=== PATIENT | male | born 1965 ===

== ENCOUNTER → 2017-11-03 | Outpatient (CLI) | payer MEDICAID | END | disposition home or self-care (01) | LOC: RAD 16:07 | PROVIDERS: ATTEND Thoracic Surgery (Cardiothoracic Vascular Surgery) | DX: M79.605 Pain in left leg (principal); R60.0 Localized edema ==

== ENCOUNTER 2017-11-10 09:00 | Inpatient (IN) | payer MEDICAID, OTHER ==
[~2017-11-10] VITALS: Ht 182.9 cm; Wt 133.4 kg
[2017-11-10 09:57] LABS: BASOPHILS # (AUTO) 0.08 x10^3/uL (0-0.1); BASOPHILS % (AUTO) 1 % (0-1); EOSINOPHILS # (AUTO) 0.58 x10^3/uL (0-0.4); EOSINOPHILS % (AUTO) 6 % (1-7); LYMPHOCYTES % (AUTO) 20 % (22-44); MD NO; MEAN CORPUSCULAR HEMOGLOBIN 26.4 pg (27.5-34.5); MEAN CORPUSCULAR HGB CONC 32.8 g/dL (33.2-36.2); MEAN CORPUSCULAR VOLUME 80.3 fL (81-97); MEAN PLATELET VOLUME 8.3 fL (7.4-10.4); MONOCYTES # (AUTO) 0.79 x10^3/uL (0.2-0.8); MONOCYTES % (AUTO) 9 % (2-9); NEUTROPHILS # (AUTO) 5.92 x10^3/uL (1.8-6.8); NEUTROPHILS % (AUTO) 65 % (42-75); PLATELET COUNT 383 x10^3/uL (130-400); RED BLOOD COUNT 3.86 x10^6/uL (4.38-5.82); RED CELL DISTRIBUTION WIDTH 17.4 % (9.4-14.8)
[2017-11-10] MEDS ORDERED: PLEASE ENTER HEIGHT AND WEIGHT MC SCH (10:00)
[2017-11-10] MEDS ORDERED: PLEASE ENTER ALLERGIES MC SCH (10:00)
[2017-11-10 10:08] LABS: INTERNATIONAL NORMALIZED RATIO 1.01 (0.93-1.1); PROTHROMBIN TIME 10.4 Seconds (9.6-11.5)
[2017-11-10 10:09] LABS: ALANINE AMINOTRANSFERASE 25 U/L (12-78); ANION GAP 7 mmol/L (5-15); CALCIUM 8.3 mg/dL (8.5-10.1); CHLORIDE 111 mmol/L (98-107); CREATININE 2.14 mg/dL (0.7-1.3)
[2017-11-10 10:11] LABS: ALKALINE PHOSPHATASE 180 U/L (45-117); BILIRUBIN,TOTAL 0.4 mg/dL (0.2-1.0); TOTAL PROTEIN 7.6 g/dL (6.4-8.2)
[2017-11-10] MEDS ORDERED: CARV25TA12 PO (10:31)
[2017-11-10] MEDS ORDERED: INSU100V8 SQ ×2 (10:31)
[2017-11-10] MEDS ORDERED: ASPI-621 PO (10:31)
[2017-11-10] MEDS ORDERED: ATOR-2 PO (10:31)
[2017-11-10] MEDS ORDERED: FURO40TA6 PO (10:31)
[2017-11-10] MEDS ORDERED: INSULIN LISPRO 100 UNITS/ML, PEN SQ-INSULIN SCH (11:00)
[2017-11-10 11:04] LABS: HEMOGLOBIN A1C 10.6 % (4.2-6.3)
[2017-11-10] MEDS ORDERED: HEPARIN 5,000 UNITS/ML, 1ML IV ONE (11:30)
[2017-11-10] MEDS: HEPARIN 25,000 UNITS/500ML PMX 500 ML IV PRN (12:03)
[2017-11-10 12:30] VITALS: BP 126/74
[2017-11-10] MEDS: INSULIN LISPRO 100 UNITS/ML, PEN SQ-INSULIN SCH ×2 (16:46→20:33)
[2017-11-10] MEDS: HEPARIN 5,000 UNITS/ML, 1ML IV PRN (18:18)
[2017-11-10 20:00] VITALS: BP 122/87
[2017-11-10] MEDS: ATORVASTATIN 80 MG TABLET PO SCH (20:28)
[2017-11-10] MEDS: SODIUM CHLORIDE FLUSH 10ML SYR IVF SCH (20:28)
[2017-11-10] MEDS: INSULIN GLARGINE 100 UNITS/ML, PEN SQ-INSULIN SCH (20:33)
[2017-11-10 21:16] LABS: MICROSCOPIC AUTO
[2017-11-11 00:54] VITALS: BP 111/68
[2017-11-11 01:12] VITALS: BP 116/67
[2017-11-11] MEDS: HEPARIN 5,000 UNITS/ML, 1ML IV PRN ×2 (01:36→14:04)
[2017-11-11] MEDS: ASPIRIN 81 MG TABLET EC PO SCH (05:11)
[2017-11-11] MEDS: CARVEDILOL 25 MG TABLET PO SCH (05:11)
[2017-11-11] MEDS: HEPARIN 25,000 UNITS/500ML PMX 500 ML IV PRN ×2 (07:17→23:05)
[2017-11-11] MEDS: INSULIN LISPRO 100 UNITS/ML, PEN SQ-INSULIN SCH ×4 (07:19→21:51)
[2017-11-11 07:20] VITALS: BP 103/61
[2017-11-11] MEDS ORDERED: FUROSEMIDE 40 MG TABLET PO SCH (09:00)
[2017-11-11] MEDS: SODIUM CHLORIDE FLUSH 10ML SYR IVF SCH ×2 (09:16→21:45)
[2017-11-11] MEDS: INSULIN GLARGINE 100 UNITS/ML, PEN SQ-INSULIN SCH ×2 (09:17→21:50)
[2017-11-11 14:06] VITALS: BP 127/73
[2017-11-11 18:43] VITALS: BP 136/82
[2017-11-11] MEDS ORDERED: CHLORHEXIDINE 15 ML BOTTLE MM SCH (21:00)
[2017-11-11] MEDS: ATORVASTATIN 80 MG TABLET PO SCH (21:45)
[2017-11-11] MEDS: MUPIROCIN OINT 2%, 22GM TP SCH (23:06)
[2017-11-12] MEDS ORDERED: ALBUMIN HUMAN 5% 500 ML IV PRN (00:30)
[2017-11-12 01:12] VITALS: BP 105/69
[2017-11-12] MEDS ORDERED: METOPROLOL TARTRATE 25 MG TABLET PO ONE (05:00)
[2017-11-12 05:33] VITALS: BP_SYST 156; BP_SYST 175; BP_DIAS 83; BP_DIAS 86
[2017-11-12] MEDS: ASPIRIN 81 MG TABLET EC PO SCH (05:38)
[2017-11-12] MEDS: MUPIROCIN OINT 2%, 22GM TP SCH ×2 (06:10→20:33)
[2017-11-12] MEDS: CARVEDILOL 25 MG TABLET PO SCH (06:10)
[2017-11-12 06:35] VITALS: BP 133/77
[2017-11-12] MEDS ORDERED: MIDAZOLAM 10MG/2 ML ONE (07:08)
[2017-11-12] MEDS ORDERED: FENTANYL PF 250 MCG/5ML ONE ×5 (07:11→11:48)
[2017-11-12] MEDS ORDERED: HEPARIN 1,000 UNITS/ML, 10ML ONE (07:12)
[2017-11-12] MEDS ORDERED: PAPAVERINE 30 MG/ML, 2ML ONE (07:12)
[2017-11-12] MEDS ORDERED: EPINEPHRINE 1 MG/ML, 1ML ONE (07:13)
[2017-11-12] MEDS ORDERED: ROCURONIUM 10 MG/ML,10ML ONE (07:13)
[2017-11-12] MEDS ORDERED: PROPOFOL 10 MG/ML, 20ML ONE (07:13)
[2017-11-12] MEDS ORDERED: PHENYLEPHRINE 10 MG in SODIUM CHLORIDE 0.9% 249 ML IV PRN ×2 (07:30→12:10)
[2017-11-12] MEDS ORDERED: VANCOMYCIN 1,900 MG in SODIUM CHLORIDE 0.9% 250 ML IV PRN (07:30)
[2017-11-12] MEDS ORDERED: POTASSIUM CHLORIDE 80 MEQ, SODIUM BICARBONATE 8.4% 10 MEQ, MAGNESIUM SULFATE 0.5 GM, LI... IV PRN (07:30)
[2017-11-12] MEDS ORDERED: MANNITOL PMX 20% 500 ML IVPB PRN (07:30)
[2017-11-12] MEDS ORDERED: DEXMEDETOMIDINE 200 MCG in SODIUM CHLORIDE 0.9% 48 ML IV SCH (07:30)
[2017-11-12] MEDS ORDERED: EPINEPHRINE 2 MG in SODIUM CHLORIDE 0.9% 248 ML IV SCH (07:30)
[2017-11-12] MEDS ORDERED: REGULAR INSULIN 62.5 UNITS in SODIUM CHLORIDE 0.9% 249.375 ML IV PRN ×2 (07:30→12:10)
[2017-11-12] MEDS ORDERED: CEFUROXIME 1.5 GM in SODIUM CHLORIDE 0.9% 50 ML IVPB PRN (07:30)
[2017-11-12] MEDS: DOCUSATE 100 MG CAPSULE PO SCH ×2 (09:00→20:00)
[2017-11-12] MEDS: SODIUM CHLORIDE FLUSH 10ML SYR IVF SCH ×3 (09:00→20:00)
[2017-11-12] MEDS ORDERED: PAPAVERINE 30 MG/ML, 2ML IVPush ONE (09:17)
[2017-11-12] MEDS ORDERED: HEPARIN 1,000 UNITS/ML, 10ML IV ONE (09:18)
[2017-11-12] MEDS ORDERED: KETAMINE 10 MG/ML, 20ML ONE (09:46)
[2017-11-12] MEDS ORDERED: PROTAMINE SULFATE 10 MG/ML, 25ML ONE ×2 (11:13)
[2017-11-12] MEDS ORDERED: CALCIUM CHLORIDE 10%, 10ML SYR ONE (11:25)
[2017-11-12] MEDS ORDERED: DEXMEDETOMIDINE 200 MCG in SODIUM CHLORIDE 0.9% 48 ML IV PRN (12:10)
[2017-11-12] MEDS ORDERED: NITROGLYCERIN/D5W PMX 240 ML IV PRN (12:10)
[2017-11-12] MEDS ORDERED: DOBUTAMINE 250 MG in SODIUM CHLORIDE 0.9% 230 ML IV PRN (12:10)
[2017-11-12] MEDS ORDERED: SODIUM BICARB 8.4%, 50ML SYRINGE ONE (12:27)
[2017-11-12] MEDS ORDERED: LIDOCAINE 2% 100MG/5ML SYRINGE ONE (12:27)
[2017-11-12] MEDS ORDERED: HEPARIN 1,000 UNITS/ML, 30ML ONE (12:27)
[2017-11-12] MEDS ORDERED: ALBUMIN HUMAN 25% 50 ML ONE (12:27)
[2017-11-12] MEDS ORDERED: MIDAZOLAM 1 MG/ML, 5ML IVPush PRN (12:30)
[2017-11-12] MEDS ORDERED: GLUCAGON 1 MG IM PRN (12:30)
[2017-11-12] MEDS: KSCALE TO 4.5 IV SCH ×2 (12:30→18:30)
[2017-11-12] MEDS ORDERED: MAGNESIUM SULFATE 1 GM in SODIUM CHLORIDE 0.9% 50 ML IVPB SCH (12:30)
[2017-11-12] MEDS ORDERED: INSULIN REGULAR 100 UNITS/ML, 3ML VIAL IVPush PRN (12:30)
[2017-11-12] MEDS ORDERED: ACETAMINOPHEN 650 MG SUPP PR PRN (12:30)
[2017-11-12] MEDS ORDERED: LACTATED RINGERS 1,000 ML IV PRN (12:30)
[2017-11-12] MEDS ORDERED: SODIUM BICARB 8.4%, 50ML SYRINGE IV PRN (12:30)
[2017-11-12] MEDS ORDERED: DEXTROSE 4 GM TAB.CHEW PO PRN (12:30)
[2017-11-12] MEDS: CHLORHEXIDINE 15 ML BOTTLE MM SCH (12:30)
[2017-11-12] MEDS ORDERED: BISACODYL 10 MG SUPP PR PRN (12:30)
[2017-11-12] MEDS ORDERED: DEXTROSE 50%, 50ML SYRINGE IVPush PRN (12:30)
[2017-11-12] MEDS ORDERED: EPINEPHRINE 2 MG in SODIUM CHLORIDE 0.9% 248 ML IV PRN (12:30)
[2017-11-12 12:35] VITALS: BP 121/63
[2017-11-12 12:50] VITALS: BP 104/58
[2017-11-12 12:51] LABS: GLUCOSE BY BLOOD GAS ANALYZER 146 mg/dL (70-110); HEMOGLOBIN BY BLOOD GAS ANALYZ 9.1 g/dL (14.0-18.0); POTASSIUM BY BLOOD GAS ANALYZR 5.8 mmol/L (3.6-5.5)
[2017-11-12 13:02] LABS: INTERNATIONAL NORMALIZED RATIO 1.15 (0.93-1.1); PROTHROMBIN TIME 11.8 Seconds (9.6-11.5)
[2017-11-12 13:30] VITALS: BP 128/73
[2017-11-12] MEDS: INSULIN LISPRO 100 UNITS/ML, PEN SQ-INSULIN SCH ×2 (16:00→20:25)
[2017-11-12] MEDS: DEXMEDETOMIDINE 1,000 MCG in SODIUM CHLORIDE 0.9% 240 ML IV PRN (16:45)
[2017-11-12] MEDS: VANCOMYCIN 1,900 MG in SODIUM CHLORIDE 0.9% 250 ML IVPB SCH (19:13)
[2017-11-12] MEDS: morphine SULFATE 10 MG/ML, 1ML IVPush PRN ×3 (19:59→23:14)
[2017-11-12] MEDS: ATORVASTATIN 80 MG TABLET PO SCH (20:00)
[2017-11-12] MEDS: MUPIROCIN OINT 2%, 22GM NAS SCH (20:33)
[2017-11-13] MEDS: KSCALE TO 4.5 IV SCH ×2 (00:30→06:30)
[2017-11-13] MEDS: DEXMEDETOMIDINE 1,000 MCG in SODIUM CHLORIDE 0.9% 240 ML IV PRN (01:47)
[2017-11-13] MEDS: morphine SULFATE 10 MG/ML, 1ML IVPush PRN ×2 (01:50→04:45)
[2017-11-13 04:15] VITALS: BP 121/67
[2017-11-13] MEDS: ASPIRIN 81 MG TABLET EC PO SCH ×2 (04:17→14:07)
[2017-11-13 05:26] LABS: CHLORIDE 114 mmol/L (98-107)
[2017-11-13 05:36] LABS: BASOPHILS # (AUTO) 0.07 x10^3/uL (0-0.1); BASOPHILS % (AUTO) 1 % (0-1); EOSINOPHILS # (AUTO) 0.16 x10^3/uL (0-0.4); EOSINOPHILS % (AUTO) 2 % (1-7); LYMPHOCYTES # (AUTO) 0.79 x10^3/uL (1-3.4); LYMPHOCYTES % (AUTO) 8 % (22-44); MD NO; MEAN CORPUSCULAR HEMOGLOBIN 26.8 pg (27.5-34.5); MEAN CORPUSCULAR HGB CONC 32.7 g/dL (33.2-36.2); MEAN CORPUSCULAR VOLUME 81.9 fL (81-97); MEAN PLATELET VOLUME 8.9 fL (7.4-10.4); MONOCYTES # (AUTO) 0.96 x10^3/uL (0.2-0.8); MONOCYTES % (AUTO) 9 % (2-9); NEUTROPHILS # (AUTO) 8.27 x10^3/uL (1.8-6.8); NEUTROPHILS % (AUTO) 81 % (42-75); PLATELET COUNT 268 x10^3/uL (130-400); RED CELL DISTRIBUTION WIDTH 17.6 % (9.4-14.8)
[2017-11-13 06:39] LABS: ANION GAP 11 mmol/L (5-15)
[2017-11-13 06:40] LABS: ALBUMIN 2.7 g/dL (3.4-5.0); CALCIUM 8.2 mg/dL (8.5-10.1); CREATININE 1.82 mg/dL (0.7-1.3)
[2017-11-13] MEDS: INSULIN LISPRO 100 UNITS/ML, PEN SQ-INSULIN SCH ×4 (06:40→20:41)
[2017-11-13] MEDS: SODIUM CHLORIDE FLUSH 10ML SYR IVF SCH ×3 (09:00→20:37)
[2017-11-13] MEDS: MUPIROCIN OINT 2%, 22GM NAS SCH ×2 (09:00→20:38)
[2017-11-13] MEDS: CHLORHEXIDINE 15 ML BOTTLE MM SCH ×2 (10:00→20:37)
[2017-11-13] MEDS: HYDROcodone/APAP 5/325 TABLET PO PRN ×2 (10:38→18:23)
[2017-11-13] MEDS: DOCUSATE 100 MG CAPSULE PO SCH ×2 (14:07→20:37)
[2017-11-13] MEDS: OXYcodone IR 5MG TABLET PO PRN ×3 (14:07→22:45)
[2017-11-13] MEDS: CARVEDILOL 3.125 MG TABLET PO SCH ×2 (14:08→18:24)
[2017-11-13] MEDS: MUPIROCIN OINT 2%, 22GM TP SCH ×2 (14:08→20:37)
[2017-11-13] MEDS: VANCOMYCIN 1,900 MG in SODIUM CHLORIDE 0.9% 250 ML IVPB SCH (18:49)
[2017-11-13] MEDS: ONDANSETRON 2MG/ML, 2ML IVPush PRN (19:51)
[2017-11-13] MEDS: ATORVASTATIN 80 MG TABLET PO SCH (20:37)
[2017-11-14] MEDS: INSULIN LISPRO 100 UNITS/ML, PEN SQ-INSULIN SCH ×5 (02:34→20:15)
[2017-11-14 03:00] VITALS: BP 121/74
[2017-11-14] MEDS: HYDROcodone/APAP 5/325 TABLET PO PRN ×3 (04:06→18:29)
[2017-11-14 04:31] LABS: MEAN CORPUSCULAR HEMOGLOBIN 26.7 pg (27.5-34.5); MEAN CORPUSCULAR HGB CONC 32.8 g/dL (33.2-36.2); MEAN CORPUSCULAR VOLUME 81.5 fL (81-97); MEAN PLATELET VOLUME 8.5 fL (7.4-10.4); PLATELET COUNT 250 x10^3/uL (130-400); RED BLOOD COUNT 2.91 x10^6/uL (4.38-5.82); RED CELL DISTRIBUTION WIDTH 17.9 % (9.4-14.8)
[2017-11-14 04:36] LABS: ANION GAP 6 mmol/L (5-15); CALCIUM 7.8 mg/dL (8.5-10.1); CHLORIDE 110 mmol/L (98-107); CREATININE 2.14 mg/dL (0.7-1.3)
[2017-11-14 05:47] LABS: BASOPHILS # (AUTO) 0.05 x10^3/uL (0-0.1); BASOPHILS % (AUTO) 0 % (0-1); EOSINOPHILS # (AUTO) 0.02 x10^3/uL (0-0.4); EOSINOPHILS % (AUTO) 0 % (1-7); LYMPHOCYTES # (AUTO) 0.91 x10^3/uL (1-3.4); LYMPHOCYTES % (AUTO) 6 % (22-44); MD SCAN; MONOCYTES % (AUTO) 12 % (2-9); NEUTROPHILS # (AUTO) 13.45 x10^3/uL (1.8-6.8); NEUTROPHILS % (AUTO) 82 % (42-75)
[2017-11-14] MEDS: CARVEDILOL 3.125 MG TABLET PO SCH ×2 (06:07→18:28)
[2017-11-14] MEDS: ASPIRIN 81 MG TABLET EC PO SCH ×2 (06:08→09:05)
[2017-11-14] MEDS: ONDANSETRON 2MG/ML, 2ML IVPush PRN ×2 (07:31→18:28)
[2017-11-14] MEDS: DOCUSATE 100 MG CAPSULE PO SCH ×2 (09:03→20:23)
[2017-11-14] MEDS: OXYcodone IR 5MG TABLET PO PRN ×3 (09:03→20:23)
[2017-11-14] MEDS: FUROSEMIDE 20 MG/2 ML IV SCH ×2 (09:04→20:24)
[2017-11-14] MEDS: SODIUM CHLORIDE FLUSH 10ML SYR IVF SCH ×2 (09:04→20:23)
[2017-11-14] MEDS: INSULIN GLARGINE 100 UNITS/ML, PEN SQ-INSULIN SCH (09:04)
[2017-11-14] MEDS: ENOXAPARIN 40 MG/0.4 ML SQ SCH (09:05)
[2017-11-14] MEDS: MUPIROCIN OINT 2%, 22GM NAS SCH ×2 (09:10→20:24)
[2017-11-14] MEDS: CHLORHEXIDINE 15 ML BOTTLE MM SCH ×2 (10:00→20:24)
[2017-11-14] MEDS ORDERED: PROMETHAZINE 25 MG/ML, 1ML ONE (10:12)
[2017-11-14] MEDS ORDERED: PROMETHAZINE 25 MG/ML, 1ML IM PRN (10:30)
[2017-11-14 12:24] VITALS: BP 130/75
[2017-11-14 12:39] VITALS: BP 131/75
[2017-11-14 14:32] VITALS: BP 134/82
[2017-11-14] MEDS: ATORVASTATIN 80 MG TABLET PO SCH (20:23)
[2017-11-15 02:30] VITALS: BP 121/63
[2017-11-15] MEDS: INSULIN LISPRO 100 UNITS/ML, PEN SQ-INSULIN SCH ×5 (03:00→19:59)
[2017-11-15 04:00] VITALS: BP 134/68
[2017-11-15] MEDS: HYDROcodone/APAP 5/325 TABLET PO PRN ×3 (04:22→17:20)
[2017-11-15 04:49] LABS: ANION GAP 8 mmol/L (5-15); CALCIUM 8.1 mg/dL (8.5-10.1); CHLORIDE 108 mmol/L (98-107)
[2017-11-15 04:55] LABS: % IRON SATURATION 7 % (20-55); CREATININE 2.59 mg/dL (0.7-1.3); IRON LEVEL 14 mcg/dL (65-175); TOTAL IRON BINDING CAPACITY 209 mcg/dL (250-450)
[2017-11-15] MEDS: CARVEDILOL 3.125 MG TABLET PO SCH ×2 (05:43→17:19)
[2017-11-15 06:12] LABS: MEAN CORPUSCULAR HEMOGLOBIN 27.3 pg (27.5-34.5); MEAN CORPUSCULAR VOLUME 82.8 fL (81-97); MEAN PLATELET VOLUME 8.8 fL (7.4-10.4); PLATELET COUNT 208 x10^3/uL (130-400); RED BLOOD COUNT 2.71 x10^6/uL (4.38-5.82); RED CELL DISTRIBUTION WIDTH 17.5 % (9.4-14.8)
[2017-11-15 08:55] LABS: MD YES
[2017-11-15] MEDS: MUPIROCIN OINT 2%, 22GM NAS SCH ×2 (09:20→19:57)
[2017-11-15] MEDS: CHLORHEXIDINE 15 ML BOTTLE MM SCH ×2 (09:20→19:57)
[2017-11-15 09:21] LABS: <PLATELET ESTIMATE> ADEQUATE; BASOS#(MANUAL) 0.28 x10^3/uL (0-0.1); BASOS% (MANUAL) 2 % (0-1); EOS#(MANUAL) 0.28 x10^3/uL (0.0-0.4); EOS% (MANUAL) 2 % (1-7); LYMPH#(MANUAL) 1.13 x10^3/uL (1-3.4); LYMPHS% (MANUAL) 8 % (22-44); METAMYELOCYTES# (MANUAL) 0.28 x10^3/uL (0-0); METAMYELOCYTES% (MANUAL) 2 % (0-1); MONOS#(MANUAL) 2.26 x10^3/uL (0.3-2.7); MONOS% (MANUAL) 16 % (2-9); SEG#(MANUAL) 9.87 x10^3/uL (1.8-6.8); SEGS% (MANUAL) 70 % (42-75)
[2017-11-15] MEDS: DOCUSATE 100 MG CAPSULE PO SCH ×2 (09:21→19:57)
[2017-11-15] MEDS: ASPIRIN 81 MG TABLET EC PO SCH (09:21)
[2017-11-15] MEDS: CLOPIDOGREL 75 MG TABLET PO SCH (09:21)
[2017-11-15 09:22] LABS: <PLT MORPHOLOGY> NORMAL PLT MORPH
[2017-11-15] MEDS: INSULIN GLARGINE 100 UNITS/ML, PEN SQ-INSULIN SCH (09:22)
[2017-11-15] MEDS: SODIUM CHLORIDE FLUSH 10ML SYR IVF SCH ×2 (09:24→19:57)
[2017-11-15 09:25] LABS: ANISOCYTOSIS 1+
[2017-11-15 09:55] VITALS: BP 147/84
[2017-11-15 10:13] VITALS: BP 140/81
[2017-11-15] MEDS: ERGOCALCIFEROL 50,000 UNIT CAPSULE PO SCH (10:49)
[2017-11-15] MEDS: ENOXAPARIN 40 MG/0.4 ML SQ SCH (10:49)
[2017-11-15 12:49] VITALS: BP 134/77
[2017-11-15 12:50] VITALS: BP 134/77
[2017-11-15] MEDS: ONDANSETRON 2MG/ML, 2ML IVPush PRN (14:07)
[2017-11-15] MEDS: ATORVASTATIN 80 MG TABLET PO SCH (19:57)
[2017-11-15] MEDS: OXYcodone IR 5MG TABLET PO PRN (21:54)
[2017-11-16] MEDS: OXYcodone IR 5MG TABLET PO PRN ×2 (02:08→20:24)
[2017-11-16 03:51] VITALS: BP 148/81
[2017-11-16 04:31] LABS: BASOPHILS # (AUTO) 0.03 x10^3/uL (0-0.1); BASOPHILS % (AUTO) 0 % (0-1); EOSINOPHILS # (AUTO) 0.59 x10^3/uL (0-0.4); EOSINOPHILS % (AUTO) 5 % (1-7); LYMPHOCYTES # (AUTO) 1.14 x10^3/uL (1-3.4); LYMPHOCYTES % (AUTO) 9 % (22-44); MD NO; MEAN CORPUSCULAR HEMOGLOBIN 27.4 pg (27.5-34.5); MEAN PLATELET VOLUME 8.9 fL (7.4-10.4); MONOCYTES # (AUTO) 1.29 x10^3/uL (0.2-0.8); MONOCYTES % (AUTO) 11 % (2-9); NEUTROPHILS # (AUTO) 9.13 x10^3/uL (1.8-6.8); NEUTROPHILS % (AUTO) 75 % (42-75); PLATELET COUNT 237 x10^3/uL (130-400); RED BLOOD COUNT 3.06 x10^6/uL (4.38-5.82); RED CELL DISTRIBUTION WIDTH 17.4 % (9.4-14.8)
[2017-11-16 04:41] LABS: ANION GAP 9 mmol/L (5-15); CALCIUM 8.3 mg/dL (8.5-10.1); CHLORIDE 107 mmol/L (98-107); CREATININE 2.54 mg/dL (0.7-1.3)
[2017-11-16] MEDS: CARVEDILOL 3.125 MG TABLET PO SCH ×2 (04:58→17:23)
[2017-11-16] MEDS: INSULIN LISPRO 100 UNITS/ML, PEN SQ-INSULIN SCH ×4 (07:11→20:25)
[2017-11-16] MEDS: HYDROcodone/APAP 5/325 TABLET PO PRN ×3 (07:12→17:23)
[2017-11-16] MEDS: MUPIROCIN OINT 2%, 22GM NAS SCH ×2 (08:00→20:24)
[2017-11-16] MEDS: CLOPIDOGREL 75 MG TABLET PO SCH (08:01)
[2017-11-16] MEDS: INSULIN GLARGINE 100 UNITS/ML, PEN SQ-INSULIN SCH (08:01)
[2017-11-16] MEDS: DOCUSATE 100 MG CAPSULE PO SCH ×2 (08:01→20:24)
[2017-11-16] MEDS: CHLORHEXIDINE 15 ML BOTTLE MM SCH (08:01)
[2017-11-16] MEDS: ASPIRIN 81 MG TABLET EC PO SCH (08:01)
[2017-11-16] MEDS: SODIUM CHLORIDE FLUSH 10ML SYR IVF SCH ×2 (08:04→20:24)
[2017-11-16] MEDS: ENOXAPARIN 40 MG/0.4 ML SQ SCH (09:14)
[2017-11-16] MEDS: BISACODYL 5 MG EC TABLET PO PRN (11:30)
[2017-11-16] MEDS: ATORVASTATIN 80 MG TABLET PO SCH (20:24)
[2017-11-17] MEDS: OXYcodone IR 5MG TABLET PO PRN ×2 (02:45→16:06)
[2017-11-17] MEDS ORDERED: AMLODIPINE 5 MG TABLET PO ONE (04:00)
[2017-11-17 04:24] LABS: BASOPHILS # (AUTO) 0.12 x10^3/uL (0-0.1); BASOPHILS % (AUTO) 1 % (0-1); EOSINOPHILS # (AUTO) 0.71 x10^3/uL (0-0.4); EOSINOPHILS % (AUTO) 7 % (1-7); LYMPHOCYTES # (AUTO) 1.17 x10^3/uL (1-3.4); LYMPHOCYTES % (AUTO) 11 % (22-44); MD NO; MEAN CORPUSCULAR HEMOGLOBIN 27.4 pg (27.5-34.5); MEAN CORPUSCULAR HGB CONC 33.1 g/dL (33.2-36.2); MEAN CORPUSCULAR VOLUME 82.8 fL (81-97); MEAN PLATELET VOLUME 8.3 fL (7.4-10.4); MONOCYTES # (AUTO) 1.38 x10^3/uL (0.2-0.8); MONOCYTES % (AUTO) 13 % (2-9); NEUTROPHILS # (AUTO) 6.93 x10^3/uL (1.8-6.8); NEUTROPHILS % (AUTO) 67 % (42-75); PLATELET COUNT 276 x10^3/uL (130-400); RED BLOOD COUNT 3.14 x10^6/uL (4.38-5.82); RED CELL DISTRIBUTION WIDTH 17.3 % (9.4-14.8)
[2017-11-17 04:35] LABS: ANION GAP 7 mmol/L (5-15); CHLORIDE 107 mmol/L (98-107)
[2017-11-17 04:37] LABS: CREATININE 2.14 mg/dL (0.7-1.3)
[2017-11-17 05:26] VITALS: BP 133/73
[2017-11-17] MEDS: CARVEDILOL 3.125 MG TABLET PO SCH (06:07)
[2017-11-17] MEDS: INSULIN LISPRO 100 UNITS/ML, PEN SQ-INSULIN SCH ×4 (07:00→20:03)
[2017-11-17] MEDS: ONDANSETRON 2MG/ML, 2ML IVPush PRN (07:36)
[2017-11-17] MEDS: CLOPIDOGREL 75 MG TABLET PO SCH (08:20)
[2017-11-17] MEDS: DOCUSATE 100 MG CAPSULE PO SCH ×2 (08:20→19:54)
[2017-11-17] MEDS: ENOXAPARIN 40 MG/0.4 ML SQ SCH (08:20)
[2017-11-17] MEDS: ASPIRIN 81 MG TABLET EC PO SCH (08:20)
[2017-11-17] MEDS: SODIUM CHLORIDE FLUSH 10ML SYR IVF SCH ×3 (08:22→19:54)
[2017-11-17] MEDS: INSULIN GLARGINE 100 UNITS/ML, PEN SQ-INSULIN SCH (08:22)
[2017-11-17] MEDS: MUPIROCIN OINT 2%, 22GM NAS SCH (08:22)
[2017-11-17] MEDS ORDERED: MAGNESIUM HYDROXIDE 8%, 30ML UDC PO PRN (09:30)
[2017-11-17] MEDS ORDERED: EPINEPHRINE SYRINGE 0.1 MG/ML, 10ML ONE (10:37)
[2017-11-17] MEDS ORDERED: CALCIUM CHLORIDE 10%, 10ML SYR ONE (10:37)
[2017-11-17] MEDS: ACETAMINOPHEN 325 MG TABLET PO PRN (12:04)
[2017-11-17] MEDS: BISACODYL 5 MG EC TABLET PO PRN (12:04)
[2017-11-17 15:30] VITALS: BP 133/81
[2017-11-17] MEDS ORDERED: CARVEDILOL 6.25 MG TABLET PO SCH (18:00)
[2017-11-17] MEDS ORDERED: ETOMIDATE 20 MG/10 ML ONE (18:30)
[2017-11-17] MEDS ORDERED: VECURONIUM 20 MG VIAL ONE (18:30)
[2017-11-17] MEDS ORDERED: SUCCINYLCHOLINE 20 MG/ML, 10ML ONE (18:30)
[2017-11-17] MEDS: ATORVASTATIN 80 MG TABLET PO SCH (19:54)
[2017-11-17] MEDS ORDERED: ATROPINE SYRINGE 0.1 MG/ML, 10ML IVPush ONE (21:00)
[2017-11-17] MEDS: PROPOFOL 100 ML IV PRN (21:12)
[2017-11-17] MEDS ORDERED: ATROPINE 1 MG/ML, 1ML IVPush PRN (21:30)
[2017-11-17 22:24] LABS: BASOPHILS # (AUTO) 0.04 x10^3/uL (0-0.1); BASOPHILS % (AUTO) 0 % (0-1); EOSINOPHILS # (AUTO) 0.31 x10^3/uL (0-0.4); EOSINOPHILS % (AUTO) 3 % (1-7); LYMPHOCYTES # (AUTO) 0.89 x10^3/uL (1-3.4); LYMPHOCYTES % (AUTO) 9 % (22-44); MD NO; MEAN CORPUSCULAR HEMOGLOBIN 26.8 pg (27.5-34.5); MEAN CORPUSCULAR HGB CONC 32.6 g/dL (33.2-36.2); MEAN CORPUSCULAR VOLUME 82.3 fL (81-97); MEAN PLATELET VOLUME 8.1 fL (7.4-10.4); MONOCYTES # (AUTO) 1.21 x10^3/uL (0.2-0.8); MONOCYTES % (AUTO) 12 % (2-9); NEUTROPHILS # (AUTO) 7.73 x10^3/uL (1.8-6.8); NEUTROPHILS % (AUTO) 76 % (42-75); PLATELET COUNT 332 x10^3/uL (130-400); RED BLOOD COUNT 3.22 x10^6/uL (4.38-5.82); RED CELL DISTRIBUTION WIDTH 16.9 % (9.4-14.8)
[2017-11-17 22:29] LABS: ANION GAP 10 mmol/L (5-15); CALCIUM 8.7 mg/dL (8.5-10.1); CHLORIDE 107 mmol/L (98-107); CREATININE 2.12 mg/dL (0.7-1.3)
[2017-11-18] MEDS ORDERED: ATROPINE SYRINGE 0.1 MG/ML, 10ML IVPush ONE
[2017-11-18] MEDS: PROPOFOL 100 ML IV PRN ×5 (00:24→19:47)
[2017-11-18] MEDS ORDERED: EPINEPHRINE 1 MG in SODIUM CHLORIDE 0.9% 249 ML IV PRN (00:30)
[2017-11-18] MEDS ORDERED: hydrALAzine 20 MG/ML, 1ML IV PRN (00:30)
[2017-11-18 02:19] LABS: ANION GAP 11 mmol/L (5-15); CALCIUM 8.6 mg/dL (8.5-10.1); CHLORIDE 107 mmol/L (98-107)
[2017-11-18 04:49] VITALS: BP 133/75
[2017-11-18 05:18] LABS: ANION GAP 12 mmol/L (5-15); CALCIUM 8.5 mg/dL (8.5-10.1); CHLORIDE 107 mmol/L (98-107); CREATININE 2.03 mg/dL (0.7-1.3)
[2017-11-18] MEDS: INSULIN GLARGINE 100 UNITS/ML, PEN SQ-INSULIN SCH (08:00)
[2017-11-18] MEDS ORDERED: MAGNESIUM CITRATE 300ML ORAL SOL PO ONE (08:30)
[2017-11-18] MEDS: ENOXAPARIN 40 MG/0.4 ML SQ SCH ×2 (09:00→09:57)
[2017-11-18] MEDS: ERGOCALCIFEROL 50,000 UNIT CAPSULE PO SCH (09:00)
[2017-11-18] MEDS: DOCUSATE 100 MG CAPSULE PO SCH (09:00)
[2017-11-18] MEDS: ASPIRIN 81 MG TABLET EC PO SCH (09:00)
[2017-11-18] MEDS: SODIUM CHLORIDE FLUSH 10ML SYR IVF SCH ×4 (09:00→19:51)
[2017-11-18] MEDS: INSULIN LISPRO 100 UNITS/ML, PEN SQ-INSULIN SCH ×4 (09:50→23:28)
[2017-11-18] MEDS: CLOPIDOGREL 75 MG TABLET PO SCH (09:57)
[2017-11-18] MEDS ORDERED: CEFAZOLIN 1,000 MG ONE (13:42)
[2017-11-18] MEDS ORDERED: LIDOCAINE 2%, 20ML ONE (13:42)
[2017-11-18] MEDS ORDERED: CEFAZOLIN PMX 1GM/50ML 0 ML ONE (13:42)
[2017-11-18] MEDS ORDERED: VANCOMYCIN 500 MG ONE (13:45)
[2017-11-18] MEDS ORDERED: VANCOMYCIN PMX 1GM/200ML 0 ML ONE (13:46)
[2017-11-18] MEDS ORDERED: FENTANYL PF 100 MCG/2ML ONE (14:27)
[2017-11-18] MEDS ORDERED: VANCOMYCIN PMX 1GM/200ML 200 ML ONE (14:33)
[2017-11-18] MEDS ORDERED: MORPHINE SULFATE 4 MG/ML, 1ML ONE (15:47)
[2017-11-18] MEDS ORDERED: MORPHINE SULFATE 4 MG/ML, 1ML IVPush PRN (16:00)
[2017-11-18] MEDS: OXYcodone IR 5MG TABLET PO PRN (19:51)
[2017-11-18] MEDS: ATORVASTATIN 80 MG TABLET PO SCH (19:51)
[2017-11-18] MEDS: DOCUSATE 50 MG/5 ML, 10ML UDC NG SCH (22:07)
[2017-11-19] MEDS ORDERED: VANCOMYCIN PMX 1GM/200ML 200 ML IVPB ONE
[2017-11-19] MEDS: PROPOFOL 100 ML IV PRN (03:52)
[2017-11-19] MEDS: OXYcodone IR 5MG TABLET PO PRN ×5 (03:52→19:23)
[2017-11-19 04:00] VITALS: BP 125/65
[2017-11-19 04:53] LABS: BASOPHILS # (AUTO) 0.08 x10^3/uL (0-0.1); BASOPHILS % (AUTO) 1 % (0-1); EOSINOPHILS # (AUTO) 0.39 x10^3/uL (0-0.4); EOSINOPHILS % (AUTO) 4 % (1-7); LYMPHOCYTES # (AUTO) 0.83 x10^3/uL (1-3.4); LYMPHOCYTES % (AUTO) 9 % (22-44); MD NO; MEAN CORPUSCULAR HEMOGLOBIN 27.6 pg (27.5-34.5); MEAN CORPUSCULAR HGB CONC 33.7 g/dL (33.2-36.2); MEAN CORPUSCULAR VOLUME 81.9 fL (81-97); MEAN PLATELET VOLUME 8.1 fL (7.4-10.4); MONOCYTES # (AUTO) 1.28 x10^3/uL (0.2-0.8); MONOCYTES % (AUTO) 13 % (2-9); NEUTROPHILS # (AUTO) 7.13 x10^3/uL (1.8-6.8); NEUTROPHILS % (AUTO) 73 % (42-75); PLATELET COUNT 312 x10^3/uL (130-400); RED BLOOD COUNT 2.97 x10^6/uL (4.38-5.82); RED CELL DISTRIBUTION WIDTH 17.2 % (9.4-14.8)
[2017-11-19 05:12] LABS: ANION GAP 9 mmol/L (5-15); CALCIUM 7.9 mg/dL (8.5-10.1); CHLORIDE 108 mmol/L (98-107); CREATININE 1.87 mg/dL (0.7-1.3)
[2017-11-19] MEDS: INSULIN LISPRO 100 UNITS/ML, PEN SQ-INSULIN SCH ×4 (06:11→20:58)
[2017-11-19] MEDS: ENOXAPARIN 40 MG/0.4 ML SQ SCH (08:52)
[2017-11-19] MEDS: INSULIN GLARGINE 100 UNITS/ML, PEN SQ-INSULIN SCH (08:52)
[2017-11-19] MEDS: DOCUSATE 50 MG/5 ML, 10ML UDC NG SCH ×2 (08:52→19:23)
[2017-11-19] MEDS: ACETAMINOPHEN 325 MG TABLET PO PRN ×2 (09:00→15:55)
[2017-11-19] MEDS ORDERED: DOCUSATE 100 MG CAPSULE NG SCH (09:00)
[2017-11-19] MEDS: CLOPIDOGREL 75 MG TABLET PO SCH (11:38)
[2017-11-19] MEDS: ASPIRIN 81 MG TABLET EC PO SCH (11:38)
[2017-11-19] MEDS: HYDROcodone/APAP 5/325 TABLET PO PRN (11:41)
[2017-11-19] MEDS: ATORVASTATIN 80 MG TABLET PO SCH (19:23)
[2017-11-20] MEDS: OXYcodone IR 5MG TABLET PO PRN ×7 (00:07→22:22)
[2017-11-20 04:41] LABS: BASOPHILS # (AUTO) 0.09 x10^3/uL (0-0.1); BASOPHILS % (AUTO) 1 % (0-1); EOSINOPHILS # (AUTO) 0.66 x10^3/uL (0-0.4); EOSINOPHILS % (AUTO) 5 % (1-7); LYMPHOCYTES % (AUTO) 9 % (22-44); MD NO; MEAN CORPUSCULAR HEMOGLOBIN 27.4 pg (27.5-34.5); MEAN CORPUSCULAR HGB CONC 32.7 g/dL (33.2-36.2); MEAN CORPUSCULAR VOLUME 83.6 fL (81-97); MEAN PLATELET VOLUME 7.9 fL (7.4-10.4); MONOCYTES # (AUTO) 1.44 x10^3/uL (0.2-0.8); MONOCYTES % (AUTO) 11 % (2-9); NEUTROPHILS # (AUTO) 9.32 x10^3/uL (1.8-6.8); NEUTROPHILS % (AUTO) 73 % (42-75); PLATELET COUNT 396 x10^3/uL (130-400); RED BLOOD COUNT 3.11 x10^6/uL (4.38-5.82); RED CELL DISTRIBUTION WIDTH 17.1 % (9.4-14.8)
[2017-11-20 04:48] LABS: ANION GAP 8 mmol/L (5-15); CALCIUM 8.2 mg/dL (8.5-10.1); CHLORIDE 109 mmol/L (98-107); CREATININE 1.97 mg/dL (0.7-1.3)
[2017-11-20] MEDS: INSULIN LISPRO 100 UNITS/ML, PEN SQ-INSULIN SCH ×4 (05:26→21:00)
[2017-11-20 05:30] VITALS: BP 125/70
[2017-11-20] MEDS: DOCUSATE 50 MG/5 ML, 10ML UDC NG SCH ×2 (07:50→22:16)
[2017-11-20] MEDS: ASPIRIN 81 MG TABLET EC PO SCH (07:50)
[2017-11-20] MEDS: CLOPIDOGREL 75 MG TABLET PO SCH (07:50)
[2017-11-20] MEDS: ENOXAPARIN 40 MG/0.4 ML SQ SCH (07:50)
[2017-11-20] MEDS: INSULIN GLARGINE 100 UNITS/ML, PEN SQ-INSULIN SCH (07:51)
[2017-11-20] MEDS: CARVEDILOL 6.25 MG TABLET PO SCH ×2 (10:59→17:25)
[2017-11-20] MEDS ORDERED: MAGNESIUM HYDROXIDE 8%, 30ML UDC PO PRN (11:00)
[2017-11-20] MEDS: GABAPENTIN 100 MG CAPSULE PO SCH ×3 (12:19→22:16)
[2017-11-20 13:44] VITALS: BP 113/72
[2017-11-20 14:04] VITALS: BP 125/76
[2017-11-20] MEDS: ONDANSETRON 2MG/ML, 2ML IVPush PRN (14:14)
[2017-11-20] MEDS ORDERED: FUROSEMIDE 40 MG/4 ML IV SCH (17:00)
[2017-11-20] MEDS: PROCHLORPERAZINE 5 MG/ML, 2ML IVPush PRN (17:18)
[2017-11-20 19:32] VITALS: BP 137/76
[2017-11-20] MEDS: ATORVASTATIN 80 MG TABLET PO SCH (22:15)
[2017-11-20] MEDS: SODIUM CHLORIDE FLUSH 10ML SYR IVF SCH (22:18)
[2017-11-21 01:30] VITALS: BP 120/75
[2017-11-21] MEDS: OXYcodone IR 5MG TABLET PO PRN ×2 (01:53→05:53)
[2017-11-21 05:32] LABS: ALBUMIN 2.3 g/dL (3.4-5.0); CALCIUM 7.9 mg/dL (8.5-10.1); CHLORIDE 105 mmol/L (98-107)
[2017-11-21 05:33] LABS: ANION GAP 8 mmol/L (5-15); CREATININE 2.56 mg/dL (0.7-1.3)
[2017-11-21 05:46] LABS: BASOPHILS # (AUTO) 0.06 x10^3/uL (0-0.1); BASOPHILS % (AUTO) 1 % (0-1); EOSINOPHILS # (AUTO) 0.77 x10^3/uL (0-0.4); EOSINOPHILS % (AUTO) 7 % (1-7); LYMPHOCYTES # (AUTO) 1.26 x10^3/uL (1-3.4); LYMPHOCYTES % (AUTO) 11 % (22-44); MD NO; MEAN CORPUSCULAR HEMOGLOBIN 27.7 pg (27.5-34.5); MEAN CORPUSCULAR HGB CONC 33.4 g/dL (33.2-36.2); MEAN CORPUSCULAR VOLUME 82.8 fL (81-97); MEAN PLATELET VOLUME 7.9 fL (7.4-10.4); MONOCYTES # (AUTO) 1.12 x10^3/uL (0.2-0.8); MONOCYTES % (AUTO) 10 % (2-9); NEUTROPHILS # (AUTO) 8.08 x10^3/uL (1.8-6.8); NEUTROPHILS % (AUTO) 72 % (42-75); PLATELET COUNT 384 x10^3/uL (130-400); RED BLOOD COUNT 2.93 x10^6/uL (4.38-5.82); RED CELL DISTRIBUTION WIDTH 17.1 % (9.4-14.8)
[2017-11-21] MEDS: CARVEDILOL 6.25 MG TABLET PO SCH ×2 (05:53→22:57)
[2017-11-21] MEDS ORDERED: NALOXONE 0.4 MG/ML, 1ML IVPush ONE (07:00)
[2017-11-21 07:21] VITALS: BP 128/76
[2017-11-21] MEDS: INSULIN GLARGINE 100 UNITS/ML, PEN SQ-INSULIN SCH (09:39)
[2017-11-21] MEDS: GABAPENTIN 100 MG CAPSULE PO SCH ×3 (09:40→22:57)
[2017-11-21] MEDS: INSULIN LISPRO 100 UNITS/ML, PEN SQ-INSULIN SCH ×4 (09:40→23:01)
[2017-11-21] MEDS: SODIUM CHLORIDE FLUSH 10ML SYR IVF SCH ×2 (09:40→22:59)
[2017-11-21] MEDS: ASPIRIN 81 MG TABLET EC PO SCH (09:40)
[2017-11-21] MEDS: CLOPIDOGREL 75 MG TABLET PO SCH (09:40)
[2017-11-21] MEDS: DOCUSATE 50 MG/5 ML, 10ML UDC NG SCH ×2 (09:46→22:57)
[2017-11-21] MEDS: ENOXAPARIN 40 MG/0.4 ML SQ SCH (09:48)
[2017-11-21] MEDS: ONDANSETRON 2MG/ML, 2ML IVPush PRN (13:15)
[2017-11-21 14:58] VITALS: BP 135/76
[2017-11-21] MEDS: PROCHLORPERAZINE 5 MG/ML, 2ML IVPush PRN (18:02)
[2017-11-21 19:25] VITALS: BP 132/78
[2017-11-21] MEDS ORDERED: RIVAROXABAN 10 MG TABLET PO SCH (21:00)
[2017-11-21 22:45] VITALS: BP 136/87
[2017-11-21] MEDS: ATORVASTATIN 80 MG TABLET PO SCH (22:57)
[2017-11-22 00:52] VITALS: BP 134/79
[2017-11-22] MEDS: CARVEDILOL 6.25 MG TABLET PO SCH (05:34)
[2017-11-22 07:56] VITALS: BP 155/84
[2017-11-22] MEDS: DOCUSATE 50 MG/5 ML, 10ML UDC NG SCH ×2 (07:58→19:49)
[2017-11-22] MEDS: CLOPIDOGREL 75 MG TABLET PO SCH (07:59)
[2017-11-22] MEDS: INSULIN GLARGINE 100 UNITS/ML, PEN SQ-INSULIN SCH (07:59)
[2017-11-22] MEDS: GABAPENTIN 100 MG CAPSULE PO SCH ×3 (07:59→19:49)
[2017-11-22] MEDS: INSULIN LISPRO 100 UNITS/ML, PEN SQ-INSULIN SCH ×4 (07:59→19:55)
[2017-11-22] MEDS: ASPIRIN 81 MG TABLET EC PO SCH (07:59)
[2017-11-22] MEDS: SODIUM CHLORIDE FLUSH 10ML SYR IVF SCH ×2 (07:59→19:50)
[2017-11-22] MEDS: ERGOCALCIFEROL 50,000 UNIT CAPSULE PO SCH (07:59)
[2017-11-22] MEDS: ACETAMINOPHEN 325 MG TABLET PO PRN ×2 (08:06→16:35)
[2017-11-22 08:49] LABS: ALBUMIN 2.5 g/dL (3.4-5.0); ANION GAP 9 mmol/L (5-15); CALCIUM 8.1 mg/dL (8.5-10.1); CHLORIDE 103 mmol/L (98-107); CREATININE 2.31 mg/dL (0.7-1.3)
[2017-11-22 13:59] VITALS: BP 137/78
[2017-11-22 16:22] LABS: INTERNATIONAL NORMALIZED RATIO 1.06 (0.93-1.1)
[2017-11-22] MEDS ORDERED: PHARMACOKINETIC MONITORING MC PRN (16:30)
[2017-11-22] MEDS ORDERED: PHARMACOKINETIC CONSULTATION MC ONE (16:30)
[2017-11-22] MEDS: CARVEDILOL 12.5 MG TABLET PO SCH (16:46)
[2017-11-22 16:51] VITALS: BP 163/95
[2017-11-22] MEDS ORDERED: WARFARIN 7.5 MG TABLET PO-COUM ONE (18:00)
[2017-11-22] MEDS: ATORVASTATIN 80 MG TABLET PO SCH (19:49)
[2017-11-22] MEDS: HYDROcodone/APAP 5/325 TABLET PO PRN (20:06)
[2017-11-22 20:07] VITALS: BP 124/73
[2017-11-23 02:22] VITALS: BP 158/90
[2017-11-23 05:34] LABS: INTERNATIONAL NORMALIZED RATIO 1.04 (0.93-1.1); PROTHROMBIN TIME 10.8 Seconds (9.6-11.5)
[2017-11-23 05:41] LABS: ALBUMIN 2.4 g/dL (3.4-5.0); CALCIUM 8.1 mg/dL (8.5-10.1); CHLORIDE 103 mmol/L (98-107)
[2017-11-23 05:43] LABS: BASOPHILS # (AUTO) 0.06 x10^3/uL (0-0.1); BASOPHILS % (AUTO) 1 % (0-1); EOSINOPHILS # (AUTO) 0.73 x10^3/uL (0-0.4); EOSINOPHILS % (AUTO) 7 % (1-7); LYMPHOCYTES # (AUTO) 1.22 x10^3/uL (1-3.4); LYMPHOCYTES % (AUTO) 12 % (22-44); MD NO; MEAN CORPUSCULAR HEMOGLOBIN 26.9 pg (27.5-34.5); MEAN CORPUSCULAR HGB CONC 32.8 g/dL (33.2-36.2); MEAN CORPUSCULAR VOLUME 82.2 fL (81-97); MEAN PLATELET VOLUME 7.7 fL (7.4-10.4); MONOCYTES # (AUTO) 1.28 x10^3/uL (0.2-0.8); MONOCYTES % (AUTO) 12 % (2-9); NEUTROPHILS # (AUTO) 7.27 x10^3/uL (1.8-6.8); NEUTROPHILS % (AUTO) 69 % (42-75); PLATELET COUNT 471 x10^3/uL (130-400); RED BLOOD COUNT 3.09 x10^6/uL (4.38-5.82); RED CELL DISTRIBUTION WIDTH 17.2 % (9.4-14.8)
[2017-11-23 05:49] LABS: ANION GAP 10 mmol/L (5-15); CREATININE 2.16 mg/dL (0.7-1.3)
[2017-11-23] MEDS: CARVEDILOL 12.5 MG TABLET PO SCH ×2 (06:40→17:10)
[2017-11-23] MEDS: INSULIN LISPRO 100 UNITS/ML, PEN SQ-INSULIN SCH ×4 (07:25→21:30)
[2017-11-23 08:00] VITALS: BP 151/79
[2017-11-23] MEDS: ASPIRIN 81 MG TABLET EC PO SCH (09:07)
[2017-11-23] MEDS: CLOPIDOGREL 75 MG TABLET PO SCH (09:07)
[2017-11-23] MEDS: GABAPENTIN 100 MG CAPSULE PO SCH ×3 (09:07→21:29)
[2017-11-23] MEDS: SODIUM CHLORIDE FLUSH 10ML SYR IVF SCH ×2 (09:08→21:30)
[2017-11-23] MEDS: DOCUSATE 50 MG/5 ML, 10ML UDC NG SCH (09:08)
[2017-11-23 10:47] VITALS: BP 156/77
[2017-11-23] MEDS: HYDROcodone/APAP 5/325 TABLET PO PRN ×2 (10:48→21:29)
[2017-11-23] MEDS: INSULIN GLARGINE 100 UNITS/ML, PEN SQ-INSULIN SCH (11:09)
[2017-11-23] MEDS: WARFARIN MODERAT DOSE PROTOCOL XX SCH (11:10)
[2017-11-23] MEDS ORDERED: AMLODIPINE 5 MG TABLET PO ONE (14:00)
[2017-11-23 14:36] VITALS: BP 138/78
[2017-11-23] MEDS ORDERED: WARFARIN 7.5 MG TABLET PO-COUM ONE (18:00)
[2017-11-23 18:54] VITALS: BP 121/70
[2017-11-23] MEDS: ATORVASTATIN 80 MG TABLET PO SCH (21:29)
[2017-11-24 01:04] VITALS: BP 134/83
[2017-11-24 05:05] LABS: BASOPHILS # (AUTO) 0.04 x10^3/uL (0-0.1); BASOPHILS % (AUTO) 0 % (0-1); EOSINOPHILS # (AUTO) 0.53 x10^3/uL (0-0.4); EOSINOPHILS % (AUTO) 5 % (1-7); LYMPHOCYTES # (AUTO) 1.29 x10^3/uL (1-3.4); LYMPHOCYTES % (AUTO) 12 % (22-44); MD NO; MEAN CORPUSCULAR HEMOGLOBIN 27.2 pg (27.5-34.5); MEAN CORPUSCULAR HGB CONC 32.8 g/dL (33.2-36.2); MEAN CORPUSCULAR VOLUME 82.8 fL (81-97); MEAN PLATELET VOLUME 7.8 fL (7.4-10.4); MONOCYTES # (AUTO) 1.42 x10^3/uL (0.2-0.8); MONOCYTES % (AUTO) 13 % (2-9); NEUTROPHILS # (AUTO) 7.85 x10^3/uL (1.8-6.8); NEUTROPHILS % (AUTO) 71 % (42-75); PLATELET COUNT 502 x10^3/uL (130-400); RED BLOOD COUNT 3.21 x10^6/uL (4.38-5.82); RED CELL DISTRIBUTION WIDTH 16.9 % (9.4-14.8)
[2017-11-24 05:06] LABS: PROTHROMBIN TIME 11.4 Seconds (9.6-11.5)
[2017-11-24 05:07] LABS: INTERNATIONAL NORMALIZED RATIO 1.1 (0.93-1.1)
[2017-11-24 05:11] LABS: ALBUMIN 2.3 g/dL (3.4-5.0); ANION GAP 7 mmol/L (5-15); CALCIUM 8.2 mg/dL (8.5-10.1); CHLORIDE 105 mmol/L (98-107)
[2017-11-24 06:50] VITALS: BP 135/77
[2017-11-24] MEDS: CARVEDILOL 12.5 MG TABLET PO SCH ×2 (06:55→17:49)
[2017-11-24] MEDS: INSULIN GLARGINE 100 UNITS/ML, PEN SQ-INSULIN SCH (08:06)
[2017-11-24] MEDS: SODIUM CHLORIDE FLUSH 10ML SYR IVF SCH ×2 (08:07→20:49)
[2017-11-24] MEDS: INSULIN LISPRO 100 UNITS/ML, PEN SQ-INSULIN SCH ×4 (08:07→20:53)
[2017-11-24] MEDS: DOCUSATE 50 MG/5 ML, 10ML UDC PO SCH (08:07)
[2017-11-24] MEDS: CLOPIDOGREL 75 MG TABLET PO SCH (08:07)
[2017-11-24] MEDS: GABAPENTIN 100 MG CAPSULE PO SCH ×3 (08:08→20:48)
[2017-11-24] MEDS: ASPIRIN 81 MG TABLET EC PO SCH (08:08)
[2017-11-24] MEDS: LISINOPRIL 10 MG TABLET PO SCH (10:30)
[2017-11-24] MEDS: WARFARIN MODERAT DOSE PROTOCOL XX SCH (12:09)
[2017-11-24 12:30] VITALS: BP 139/77
[2017-11-24] MEDS ORDERED: LIDOCAINE 1%, 20ML ONE (13:48)
[2017-11-24] MEDS ORDERED: WARFARIN 7.5 MG TABLET PO-COUM ONE (18:00)
[2017-11-24 18:46] VITALS: BP 114/70
[2017-11-24] MEDS: ATORVASTATIN 80 MG TABLET PO SCH (20:48)
[2017-11-24] MEDS: HYDROcodone/APAP 5/325 TABLET PO PRN (20:48)
[2017-11-25 02:44] VITALS: BP 103/56
[2017-11-25 04:54] LABS: BASOPHILS # (AUTO) 0.07 x10^3/uL (0-0.1); BASOPHILS % (AUTO) 1 % (0-1); EOSINOPHILS # (AUTO) 0.54 x10^3/uL (0-0.4); EOSINOPHILS % (AUTO) 6 % (1-7); LYMPHOCYTES # (AUTO) 1.02 x10^3/uL (1-3.4); LYMPHOCYTES % (AUTO) 10 % (22-44); MD NO; MEAN CORPUSCULAR VOLUME 81.8 fL (81-97); MEAN PLATELET VOLUME 7.6 fL (7.4-10.4); MONOCYTES % (AUTO) 11 % (2-9); NEUTROPHILS # (AUTO) 7.13 x10^3/uL (1.8-6.8); NEUTROPHILS % (AUTO) 72 % (42-75); PLATELET COUNT 490 x10^3/uL (130-400); RED BLOOD COUNT 3.03 x10^6/uL (4.38-5.82); RED CELL DISTRIBUTION WIDTH 17.4 % (9.4-14.8)
[2017-11-25 05:00] LABS: INTERNATIONAL NORMALIZED RATIO 1.19 (0.93-1.1); PROTHROMBIN TIME 12.3 Seconds (9.6-11.5)
[2017-11-25 05:05] LABS: ANION GAP 7 mmol/L (5-15); CALCIUM 7.7 mg/dL (8.5-10.1); CHLORIDE 104 mmol/L (98-107); CREATININE 1.89 mg/dL (0.7-1.3)
[2017-11-25 06:44] VITALS: BP 103/71
[2017-11-25] MEDS: CARVEDILOL 12.5 MG TABLET PO SCH ×2 (06:54→16:53)
[2017-11-25] MEDS: INSULIN LISPRO 100 UNITS/ML, PEN SQ-INSULIN SCH ×4 (07:36→20:35)
[2017-11-25] MEDS: LISINOPRIL 10 MG TABLET PO SCH (07:37)
[2017-11-25] MEDS: CLOPIDOGREL 75 MG TABLET PO SCH (07:37)
[2017-11-25] MEDS: GABAPENTIN 100 MG CAPSULE PO SCH ×3 (07:37→20:34)
[2017-11-25] MEDS: ERGOCALCIFEROL 50,000 UNIT CAPSULE PO SCH (07:38)
[2017-11-25] MEDS: DOCUSATE 50 MG/5 ML, 10ML UDC PO SCH (07:38)
[2017-11-25] MEDS: ASPIRIN 81 MG TABLET EC PO SCH (07:38)
[2017-11-25] MEDS: SODIUM CHLORIDE FLUSH 10ML SYR IVF SCH ×2 (07:39→20:34)
[2017-11-25] MEDS: INSULIN GLARGINE 100 UNITS/ML, PEN SQ-INSULIN SCH (09:12)
[2017-11-25] MEDS: HYDROcodone/APAP 5/325 TABLET PO PRN ×2 (09:41→20:34)
[2017-11-25 12:25] LABS: CULTURE INDICATED? YES; MICROSCOPIC INDICATED
[2017-11-25 12:49] VITALS: BP 117/76
[2017-11-25] MEDS ORDERED: RIVAROXABAN 20 MG TABLET PO SCH (17:00)
[2017-11-25] MEDS ORDERED: WARFARIN 10 MG TABLET PO-COUM ONE (18:00)
[2017-11-25 19:51] VITALS: BP 117/73
[2017-11-25] MEDS: ATORVASTATIN 80 MG TABLET PO SCH (20:34)
[2017-11-26 01:07] VITALS: BP 123/74
[2017-11-26 04:59] LABS: BASOPHILS # (AUTO) 0.07 x10^3/uL (0-0.1); BASOPHILS % (AUTO) 1 % (0-1); EOSINOPHILS # (AUTO) 0.52 x10^3/uL (0-0.4); EOSINOPHILS % (AUTO) 6 % (1-7); LYMPHOCYTES # (AUTO) 1.22 x10^3/uL (1-3.4); LYMPHOCYTES % (AUTO) 13 % (22-44); MD NO; MEAN CORPUSCULAR HGB CONC 32.9 g/dL (33.2-36.2); MEAN CORPUSCULAR VOLUME 82.1 fL (81-97); MEAN PLATELET VOLUME 7.7 fL (7.4-10.4); MONOCYTES # (AUTO) 1.14 x10^3/uL (0.2-0.8); MONOCYTES % (AUTO) 12 % (2-9); NEUTROPHILS # (AUTO) 6.39 x10^3/uL (1.8-6.8); NEUTROPHILS % (AUTO) 68 % (42-75); PLATELET COUNT 537 x10^3/uL (130-400); RED BLOOD COUNT 3.08 x10^6/uL (4.38-5.82); RED CELL DISTRIBUTION WIDTH 16.6 % (9.4-14.8)
[2017-11-26 05:04] LABS: INTERNATIONAL NORMALIZED RATIO 1.58 (0.93-1.1); PROTHROMBIN TIME 16.3 Seconds (9.6-11.5)
[2017-11-26 05:10] LABS: ALBUMIN 2.1 g/dL (3.4-5.0); ANION GAP 7 mmol/L (5-15); CALCIUM 7.8 mg/dL (8.5-10.1); CHLORIDE 104 mmol/L (98-107)
[2017-11-26 05:15] LABS: % IRON SATURATION 7 % (20-55); ALANINE AMINOTRANSFERASE 22 U/L (12-78); ALKALINE PHOSPHATASE 137 U/L (45-117); BILIRUBIN,TOTAL 0.5 mg/dL (0.2-1.0); CREATININE 2.09 mg/dL (0.7-1.3); IRON LEVEL 17 mcg/dL (65-175); TOTAL IRON BINDING CAPACITY 228 mcg/dL (250-450); TOTAL PROTEIN 6.7 g/dL (6.4-8.2)
[2017-11-26] MEDS: CARVEDILOL 12.5 MG TABLET PO SCH ×2 (05:58→17:13)
[2017-11-26 07:08] VITALS: BP 114/72
[2017-11-26] MEDS: DOCUSATE 50 MG/5 ML, 10ML UDC PO SCH (08:53)
[2017-11-26] MEDS: GABAPENTIN 100 MG CAPSULE PO SCH ×2 (08:58→17:13)
[2017-11-26] MEDS: LISINOPRIL 10 MG TABLET PO SCH (08:58)
[2017-11-26] MEDS: INSULIN LISPRO 100 UNITS/ML, PEN SQ-INSULIN SCH ×3 (08:59→17:17)
[2017-11-26] MEDS: INSULIN GLARGINE 100 UNITS/ML, PEN SQ-INSULIN SCH (09:00)
[2017-11-26] MEDS ORDERED: IRON SUCROSE COMPLEX 100MG/5ML IV SCH (09:00)
[2017-11-26] MEDS: SODIUM CHLORIDE FLUSH 10ML SYR IVF SCH (09:00)
[2017-11-26] MEDS ORDERED: FUROSEMIDE 40 MG/4 ML IV ONE (12:00)
[2017-11-26 12:39] VITALS: BP 117/73
[2017-11-26] MEDS ORDERED: WARFARIN MODERAT DOSE PROTOCOL XX SCH (12:40)
[2017-11-26] MEDS ORDERED: INSU100V5 IVPush (13:04)
[2017-11-26] MEDS ORDERED: HYDR-3240 PO (13:04)
[2017-11-26] MEDS ORDERED: DOCU50LI12 PO (13:04)
[2017-11-26] MEDS ORDERED: WARF7.5T PO-COUM (13:04)
[2017-11-26] MEDS ORDERED: CARV12.543 PO (13:04)
[2017-11-26] MEDS ORDERED: GABA-826 PO (13:04)
[2017-11-26] MEDS ORDERED: INSU100I11 SQ-INSULIN (13:04)
[2017-11-26] MEDS ORDERED: INSU100I13 SQ-INSULIN (13:04)
[2017-11-26] MEDS ORDERED: LISI-167 PO (13:04)
[2017-11-26] MEDS: HYDROcodone/APAP 5/325 TABLET PO PRN (13:50)
[2017-11-26] MEDS: ASPIRIN 81 MG TABLET EC PO SCH (17:13)
[2017-11-26] MEDS ORDERED: WARFARIN 7.5 MG TABLET PO-COUM ONE (18:00)
[2017-12-12] MEDS ORDERED: RIVAROXABAN 20 MG TABLET PO SCH (09:00)
== END 2017-11-26 18:02 | DRG 235 ==
LOC: 5SO 09:07 → CCU 11-12 08:48 → 5SO 11-17 13:38 → CCU 11-17 18:30 → 5SO 11-20 13:34
PROVIDERS: ADMIT Thoracic Surgery (Cardiothoracic Vascular Surgery); ATTEND Thoracic Surgery (Cardiothoracic Vascular Surgery)
PROC: 021109W Bypass Coronary Artery, Two Arteries from Aorta with Autologous Venous Tissue, Open Approach (ICD-10-PCS; 2017-11-12)
PROC: 06BQ4ZZ Excision of Left Saphenous Vein, Percutaneous Endoscopic Approach (ICD-10-PCS; 2017-11-12)
PROC: 5A1221Z Performance of Cardiac Output, Continuous (ICD-10-PCS; 2017-11-12)
PROC: 5A1223Z Performance of Cardiac Pacing, Continuous (ICD-10-PCS; 2017-11-12)
PROC: 30233R1 Transfusion of Nonautologous Platelets into Peripheral Vein, Percutaneous Approach (ICD-10-PCS; 2017-11-12)
PROC: 02100Z9 Bypass Coronary Artery, One Artery from Left Internal Mammary, Open Approach (ICD-10-PCS; principal; 2017-11-12 08:00)
PROC: 30233N1 Transfusion of Nonautologous Red Blood Cells into Peripheral Vein, Percutaneous Approach (ICD-10-PCS; 2017-11-14)
PROC: 0JH606Z Insertion of Pacemaker, Dual Chamber into Chest Subcutaneous Tissue and Fascia, Open Approach (ICD-10-PCS; 2017-11-18)
PROC: 02H63JZ Insertion of Pacemaker Lead into Right Atrium, Percutaneous Approach (ICD-10-PCS; 2017-11-18)
PROC: 02HK3JZ Insertion of Pacemaker Lead into Right Ventricle, Percutaneous Approach (ICD-10-PCS; 2017-11-18)
PROC: 0W9B3ZZ Drainage of Left Pleural Cavity, Percutaneous Approach (ICD-10-PCS; 2017-11-24)
PROC: 0T9B70Z Drainage of Bladder with Drainage Device, Via Natural or Artificial Opening (ICD-10-PCS; 2017-11-25)
DX: I25.119 Atherosclerotic heart disease of native coronary artery with unspecified angina pectoris (principal); I46.9 Cardiac arrest, cause unspecified; I50.23 Acute on chronic systolic (congestive) heart failure; E11.21 Type 2 diabetes mellitus with diabetic nephropathy; I82.401 Acute embolism and thrombosis of unspecified deep veins of right lower extremity; N17.9 Acute kidney failure, unspecified; E83.51 Hypocalcemia; I25.82 Chronic total occlusion of coronary artery; N18.3 Chronic kidney disease, stage 3 (moderate); E11.40 Type 2 diabetes mellitus with diabetic neuropathy, unspecified; I13.0 Hypertensive heart and chronic kidney disease with heart failure and stage 1 through stage 4 chronic kidney disease, or unspecified chronic kidney disease; I82.612 Acute embolism and thrombosis of superficial veins of left upper extremity; J98.11 Atelectasis; D63.8 Anemia in other chronic diseases classified elsewhere; D72.829 Elevated white blood cell count, unspecified; E11.22 Type 2 diabetes mellitus with diabetic chronic kidney disease; E11.65 Type 2 diabetes mellitus with hyperglycemia; E66.9 Obesity, unspecified; E78.00 Pure hypercholesterolemia, unspecified; E78.5 Hyperlipidemia, unspecified; I25.5 Ischemic cardiomyopathy; I48.91 Unspecified atrial fibrillation; Z87.891 Personal history of nicotine dependence; Z86.718 Personal history of other venous thrombosis and embolism; Z79.01 Long term (current) use of anticoagulants; Z79.4 Long term (current) use of insulin; M19.90 Unspecified osteoarthritis, unspecified site; K52.9 Noninfective gastroenteritis and colitis, unspecified; Z68.39 Body mass index [BMI] 39.0-39.9, adult
CPT/HCPCS: 32555; 33208; 36415; 36600; 71045; 71046; 74018; 80048; 80053; 80069; 81001; 82040; 82306; 82330; 82728; 82800; 82803; 82810; 82947; 82962; 83036; 83540; 83550; 83735; 83880; 83970; 84100; 84132; 84295; 84550; 85014; 85018; 85025; 85049; 85347; 85520; 85610; 85730; 86850; 86900; 86923; 87070; 87081; 87086; 87205; 92950; 93005; 93312; 93321; 93325; 93880; 93970; 94002; 94003; 94150; 99156; 99157; C1779; C1785; C1892; J0171; J0461; J0690; J0697; J1644; J1650; J1815; J1940; J2250; J2405; J2550; J2704; J2720; J3010; J3370; J3475; J3480; J3490; P9045; P9047; C1751; C1760; J0330; J0360; J0780; J2270; J2370; J2440; J7050; P9016; P9035

== ENCOUNTER 2018-02-12 23:04 | Inpatient (IN) | payer MEDICAID ==
[~2018-02-12] VITALS: Ht 182.9 cm; Wt 111.1 kg
[~2018-02-12 23:04] MED LIST: ASPI-621 PO; ATOR-2 PO; CARV12.543 PO; CARV25TA12 PO; DOCU50LI12 PO; FURO40TA6 PO; GABA-826 PO; HYDR-3240 PO; INSU100I11 SQ-INSULIN; INSU100I13 SQ-INSULIN; INSU100V5 IVPush; INSU100V8 SQ; LISI-167 PO; WARF7.5T PO-COUM
[2018-02-12] MEDS ORDERED: LORazepam 2 MG/ML, 1ML IVPush ONE (23:30)
[2018-02-12] MEDS ORDERED: SODIUM CHLORIDE FLUSH 10ML SYR IVF ONE (23:30)
[2018-02-12 23:48] LABS: BASOPHILS # (AUTO) 0.04 x10^3/uL (0-0.1); BASOPHILS % (AUTO) 1 % (0-1); EOSINOPHILS # (AUTO) 0.34 x10^3/uL (0-0.4); EOSINOPHILS % (AUTO) 4 % (1-7); LYMPHOCYTES # (AUTO) 1.59 x10^3/uL (1-3.4); LYMPHOCYTES % (AUTO) 19 % (22-44); MD NO; MEAN CORPUSCULAR HEMOGLOBIN 25.9 pg (27.5-34.5); MEAN CORPUSCULAR HGB CONC 32.3 g/dL (33.2-36.2); MEAN CORPUSCULAR VOLUME 80.3 fL (81-97); MEAN PLATELET VOLUME 8.4 fL (7.4-10.4); MONOCYTES # (AUTO) 0.83 x10^3/uL (0.2-0.8); MONOCYTES % (AUTO) 10 % (2-9); NEUTROPHILS # (AUTO) 5.62 x10^3/uL (1.8-6.8); NEUTROPHILS % (AUTO) 67 % (42-75); PLATELET COUNT 311 x10^3/uL (130-400); RED BLOOD COUNT 4.15 x10^6/uL (4.38-5.82); RED CELL DISTRIBUTION WIDTH 19.6 % (9.4-14.8)
[2018-02-12 23:56] LABS: INTERNATIONAL NORMALIZED RATIO 1.25 (0.93-1.1); PROTHROMBIN TIME 12.9 Seconds (9.6-11.5)
[2018-02-12 23:57] LABS: ALANINE AMINOTRANSFERASE 24 U/L (12-78); ALBUMIN 3.2 g/dL (3.4-5.0); ANION GAP 10 mmol/L (5-15); CALCIUM 8.8 mg/dL (8.5-10.1); CHLORIDE 109 mmol/L (98-107); CREATININE 2.12 mg/dL (0.7-1.3)
[2018-02-13 00:01] LABS: ALKALINE PHOSPHATASE 99 U/L (45-117); BILIRUBIN,TOTAL 0.4 mg/dL (0.2-1.0); TOTAL PROTEIN 7.4 g/dL (6.4-8.2); TROPONIN I 0.039 ng/mL (0.000-0.045)
[2018-02-13] MEDS ORDERED: LORazepam 2 MG/ML, 1ML ONE (00:10)
[2018-02-13] MEDS ORDERED: LABETALOL 5MG/ML, 20ML ONE (00:15)
[2018-02-13] MEDS ORDERED: LABETALOL 5MG/ML, 20ML IVPush ONE (00:30)
[2018-02-13] MEDS ORDERED: ENOXAPARIN 100 MG/ML SQ SCH (01:30)
[2018-02-13] MEDS ORDERED: SODIUM CHLORIDE FLUSH 10ML SYR IVF PRN (01:30)
[2018-02-13] MEDS ORDERED: OMEP-110 PO (01:48)
[2018-02-13] MEDS ORDERED: AMOX-291 PO (01:49)
[2018-02-13] MEDS ORDERED: GABAPENTIN (01:53)
[2018-02-13] MEDS ORDERED: HYDR25TA6 PO (01:54)
[2018-02-13] MEDS ORDERED: DIPH1TAB PO (01:57)
[2018-02-13] MEDS ORDERED: CLAR500T PO (01:59)
[2018-02-13] MEDS ORDERED: ONDANSETRON ODT 4 MG PO PRN (02:00)
[2018-02-13] MEDS ORDERED: morphine SULFATE 10 MG/ML, 1ML IVPush PRN (02:00)
[2018-02-13] MEDS ORDERED: OXYcodone IR 5MG TABLET PO PRN (02:00)
[2018-02-13] MEDS ORDERED: DOCUSATE 100 MG CAPSULE PO PRN (02:00)
[2018-02-13] MEDS ORDERED: ACETAMINOPHEN 325 MG TABLET PO PRN (02:00)
[2018-02-13] MEDS ORDERED: hydrALAzine 20 MG/ML, 1ML IVPush PRN (02:00)
[2018-02-13] MEDS ORDERED: ONDANSETRON 2MG/ML, 2ML IVPush PRN (02:00)
[2018-02-13] MEDS ORDERED: BISACODYL 10 MG SUPP PR PRN (02:00)
[2018-02-13] MEDS ORDERED: POLYETHYLENE GLYCOL 17 GM PACKET PO PRN (02:00)
[2018-02-13] MEDS ORDERED: HYDROcodone/APAP 5/325 TABLET PO PRN (02:00)
[2018-02-13] MEDS ORDERED: DIPHENOXYLATE/ATROPINE TABLET PO PRN (02:00)
[2018-02-13] MEDS ORDERED: PROMETHAZINE 25 MG/ML, 1ML IM PRN (02:00)
[2018-02-13] MEDS ORDERED: ERGOCALCIFEROL 50,000 UNIT CAPSULE PO SCH (02:30)
[2018-02-13 02:36] LABS: FREE T4 (FREE THYROXINE) 1.2 ng/dL (0.76-1.46); THYROID STIMULATING HORMONE 1.59 mIU/L (0.358-3.740)
[2018-02-13 02:47] VITALS: BP 170/92
[2018-02-13] MEDS ORDERED: HEPARIN MC SCH (03:00)
[2018-02-13] MEDS ORDERED: CLARITHROMYCIN MC SCH (03:00)
[2018-02-13] MEDS ORDERED: ATORVASTATIN MC SCH (03:00)
[2018-02-13] MEDS: LACTOBACILLUS CHEW TABLET PO SCH ×4 (03:46→21:31)
[2018-02-13] MEDS: SODIUM CHLORIDE 0.9% 1,000 ML IV SCH (03:46)
[2018-02-13 05:11] LABS: TROPONIN I 0.047 ng/mL (0.000-0.045)
[2018-02-13] MEDS: CARVEDILOL 12.5 MG TABLET PO SCH ×2 (05:54→17:39)
[2018-02-13 05:56] VITALS: BP 150/92
[2018-02-13] MEDS: INSULIN LISPRO 100 UNITS/ML, PEN SQ-INSULIN SCH ×4 (07:00→21:33)
[2018-02-13 07:20] VITALS: BP 117/70
[2018-02-13] MEDS: INSULIN GLARGINE 100 UNITS/ML, PEN SQ-INSULIN SCH (08:00)
[2018-02-13] MEDS: CLARITHROMYCIN 500 MG TABLET PO SCH ×2 (09:28→21:32)
[2018-02-13] MEDS: AMOXICILLIN 500 MG CAPSULE PO SCH ×2 (09:28→21:32)
[2018-02-13] MEDS: OMEPRAZOLE 20 MG CAPSULE.DR PO SCH (09:28)
[2018-02-13] MEDS: HYDROCHLOROTHIAZIDE 25 MG TABLET PO SCH (09:28)
[2018-02-13] MEDS: GABAPENTIN 100 MG CAPSULE PO SCH ×3 (09:28→21:32)
[2018-02-13 10:17] LABS: MICROSCOPIC AUTO
[2018-02-13 10:18] LABS: CULTURE INDICATED? NO
[2018-02-13 10:26] LABS: AMPHETAMINE SCREEN, URINE Positive (Negative); BARBITURATE SCREEN, URINE Negative (Negative); BENZODIAZEPINE SCREEN, URINE Negative (Negative); CANNABINOID SCREEN, URINE Negative (Negative); COCAINE SCREEN, URINE Negative (Negative); METHADONE SCREEN, URINE Negative (Negative); OPIATE SCREEN, URINE Negative (Negative)
[2018-02-13 11:33] LABS: TROPONIN I 0.036 ng/mL (0.000-0.045)
[2018-02-13] MEDS ORDERED: HEPARIN 5,000 UNITS/ML, 1ML IV PRN (14:00)
[2018-02-13] MEDS ORDERED: HEPARIN 5,000 UNITS/ML, 1ML IV ONE (14:00)
[2018-02-13 14:13] VITALS: BP 130/81
[2018-02-13] MEDS: HEPARIN 25,000 UNITS/500ML PMX 500 ML IV PRN ×2 (14:56→22:12)
[2018-02-13] MEDS: PANTOPROZOLE 40MG TABLET PO SCH (17:39)
[2018-02-13] MEDS ORDERED: WARFARIN 7.5 MG TABLET PO-COUM ONE (18:00)
[2018-02-13 19:21] VITALS: BP 100/66
[2018-02-13] MEDS ORDERED: ATORVASTATIN 20 MG TABLET PO SCH (21:00)
[2018-02-14 02:11] VITALS: BP 121/69
[2018-02-14] MEDS: SODIUM CHLORIDE 0.9% 1,000 ML IV SCH (02:26)
[2018-02-14 04:40] LABS: BASOPHILS # (AUTO) 0.05 x10^3/uL (0-0.1); BASOPHILS % (AUTO) 1 % (0-1); EOSINOPHILS # (AUTO) 0.38 x10^3/uL (0-0.4); EOSINOPHILS % (AUTO) 4 % (1-7); LYMPHOCYTES # (AUTO) 1.95 x10^3/uL (1-3.4); LYMPHOCYTES % (AUTO) 20 % (22-44); MD NO; MEAN CORPUSCULAR HEMOGLOBIN 25.6 pg (27.5-34.5); MEAN CORPUSCULAR HGB CONC 32.5 g/dL (33.2-36.2); MEAN PLATELET VOLUME 8.7 fL (7.4-10.4); MONOCYTES # (AUTO) 0.81 x10^3/uL (0.2-0.8); MONOCYTES % (AUTO) 8 % (2-9); NEUTROPHILS # (AUTO) 6.66 x10^3/uL (1.8-6.8); NEUTROPHILS % (AUTO) 68 % (42-75); PLATELET COUNT 271 x10^3/uL (130-400); RED BLOOD COUNT 3.63 x10^6/uL (4.38-5.82); RED CELL DISTRIBUTION WIDTH 19.3 % (9.4-14.8)
[2018-02-14 04:44] LABS: ALANINE AMINOTRANSFERASE 21 U/L (12-78); ALBUMIN 2.7 g/dL (3.4-5.0); ANION GAP 8 mmol/L (5-15); CHLORIDE 108 mmol/L (98-107); CHOLESTEROL, TOTAL 114 mg/dL (140-239); CREATININE 1.83 mg/dL (0.7-1.3); TRIGLYCERIDES 71 mg/dL (50-200); VLDL CHOLESTEROL 14 mg/dL (0-25)
[2018-02-14 04:46] LABS: ALKALINE PHOSPHATASE 90 U/L (45-117); BILIRUBIN,TOTAL 0.4 mg/dL (0.2-1.0); CHOL/HDL RATIO 2.5; HDL CHOL % 40 % (26-37); HDL CHOLESTEROL (DIRECT) 46 mg/dL (40-60); LDL CHOLESTEROL,CALCULATED 54 mg/dL (54-169); LDL/HDL RATIO 1.2 (0.5-3.0); TOTAL PROTEIN 6.5 g/dL (6.4-8.2)
[2018-02-14 06:02] VITALS: BP 111/68
[2018-02-14] MEDS: CARVEDILOL 12.5 MG TABLET PO SCH (06:08)
[2018-02-14] MEDS: INSULIN LISPRO 100 UNITS/ML, PEN SQ-INSULIN SCH ×2 (07:00→12:56)
[2018-02-14 08:37] VITALS: BP 107/65
[2018-02-14] MEDS: INSULIN GLARGINE 100 UNITS/ML, PEN SQ-INSULIN SCH (08:56)
[2018-02-14] MEDS: CLARITHROMYCIN 500 MG TABLET PO SCH (08:56)
[2018-02-14] MEDS: AMOXICILLIN 500 MG CAPSULE PO SCH (08:57)
[2018-02-14] MEDS: HYDROCHLOROTHIAZIDE 25 MG TABLET PO SCH (08:57)
[2018-02-14] MEDS: OMEPRAZOLE 20 MG CAPSULE.DR PO SCH (08:57)
[2018-02-14] MEDS: GABAPENTIN 100 MG CAPSULE PO SCH ×2 (08:57→15:50)
[2018-02-14] MEDS: PANTOPROZOLE 40MG TABLET PO SCH (08:57)
[2018-02-14] MEDS: LACTOBACILLUS CHEW TABLET PO SCH ×2 (08:57→15:51)
[2018-02-14] MEDS: HEPARIN 25,000 UNITS/500ML PMX 500 ML IV PRN (11:51)
[2018-02-14 12:54] LABS: INTERNATIONAL NORMALIZED RATIO 1.41 (0.93-1.1); PROTHROMBIN TIME 14.6 Seconds (9.6-11.5)
[2018-02-14 13:49] VITALS: BP 123/77
[2018-02-14] MEDS ORDERED: WARFARIN 7.5 MG TABLET PO-COUM ONE ×2 (15:46→18:00)
== END 2018-02-14 17:52 | disposition home or self-care (01) | DRG 683 ==
LOC: ED 23:59 → EDIP 02-13 01:32 → 5SO 02-13 02:42
PROVIDERS: ADMIT Internal Medicine; ATTEND Internal Medicine
DX: N17.0 Acute kidney failure with tubular necrosis (principal); D68.59 Other primary thrombophilia; E11.22 Type 2 diabetes mellitus with diabetic chronic kidney disease; E44.0 Moderate protein-calorie malnutrition; I13.0 Hypertensive heart and chronic kidney disease with heart failure and stage 1 through stage 4 chronic kidney disease, or unspecified chronic kidney disease; I50.9 Heart failure, unspecified; Z86.74 Personal history of sudden cardiac arrest; R07.89 Other chest pain; I25.10 Atherosclerotic heart disease of native coronary artery without angina pectoris; N18.3 Chronic kidney disease, stage 3 (moderate); R14.0 Abdominal distension (gaseous); D50.9 Iron deficiency anemia, unspecified; K21.9 Gastro-esophageal reflux disease without esophagitis; E55.9 Vitamin D deficiency, unspecified; E78.5 Hyperlipidemia, unspecified; R19.7 Diarrhea, unspecified; F15.10 Other stimulant abuse, uncomplicated; B96.81 Helicobacter pylori [H. pylori] as the cause of diseases classified elsewhere; I25.5 Ischemic cardiomyopathy; Z95.0 Presence of cardiac pacemaker; Z86.718 Personal history of other venous thrombosis and embolism; Z79.01 Long term (current) use of anticoagulants; Z68.33 Body mass index [BMI] 33.0-33.9, adult; Z87.891 Personal history of nicotine dependence; Z79.899 Other long term (current) drug therapy; Z95.1 Presence of aortocoronary bypass graft
CPT/HCPCS: 36415; 74022; 80053; 80061; 80307; 81001; 82962; 83036; 83605; 83690; 83735; 83880; 84439; 84443; 84484; 85025; 85520; 85610; 93005; 96372; 96374; 96375; J1644; J1650; J0360; J1815; J2060; J7030

== ENCOUNTER 2018-11-18 09:12 | Inpatient (IN) | payer MEDICAID ==
[~2018-11-18] VITALS: Ht 182.9 cm; Wt 118.0 kg
[~2018-11-18 09:12] MED LIST changes: +AMOX-291 PO; -ASPI-621 PO; +ASPI81TA45 PO; +CLAR500T PO; +DIPH1TAB PO; +GABAPENTIN; +HYDR25TA6 PO; +OMEP-110 PO
--- NOTE | 2018-11-18 09:58 | NUR ---
pt presented to ed with bilateral lower extremity swelling x 1 week. pt a&ox4. pt placed in room and placed on bp, cardiac and cont. pulse oximeter. ekg done in triage and presented to md. assessment completed and awaiting md. call light in reach.
[2018-11-18] MEDS ORDERED: SODIUM CHLORIDE FLUSH 10ML SYR IVF ONE (10:00)
[2018-11-18 10:17] LABS: BASOPHILS # (AUTO) 0.06 x10^3/uL (0-0.1); BASOPHILS % (AUTO) 1 % (0-1); EOSINOPHILS # (AUTO) 0.23 x10^3/uL (0-0.4); EOSINOPHILS % (AUTO) 3 % (1-7); LYMPHOCYTES # (AUTO) 1.59 x10^3/uL (1-3.4); LYMPHOCYTES % (AUTO) 20 % (22-44); MD NO; MEAN CORPUSCULAR HEMOGLOBIN 26.1 pg (27.5-34.5); MEAN CORPUSCULAR HGB CONC 32.1 g/dL (33.2-36.2); MEAN CORPUSCULAR VOLUME 81.6 fL (81-97); MEAN PLATELET VOLUME 8.6 fL (7.4-10.4); MONOCYTES # (AUTO) 0.84 x10^3/uL (0.2-0.8); MONOCYTES % (AUTO) 11 % (2-9); NEUTROPHILS # (AUTO) 5.22 x10^3/uL (1.8-6.8); NEUTROPHILS % (AUTO) 66 % (42-75); PLATELET COUNT 375 x10^3/uL (130-400); RED BLOOD COUNT 3.84 x10^6/uL (4.38-5.82); RED CELL DISTRIBUTION WIDTH 15.4 % (9.4-14.8)
[2018-11-18 10:25] LABS: PROTHROMBIN TIME 10.5 Seconds (9.6-11.5)
[2018-11-18 10:26] LABS: ALBUMIN 2.1 g/dL (3.4-5.0); ANION GAP 4 mmol/L (5-15); CHLORIDE 112 mmol/L (98-107)
[2018-11-18 10:30] LABS: TROPONIN I 0.059 ng/mL (0.000-0.045)
--- NOTE | 2018-11-18 12:55 | NUR ---
SEE DOWN TIME PROCEDURES PRIOR TO CURRENT CHARTING. PT WILL BE ADMITTED. AWAITING BED. PT IS A TELE HOLD AT THIS TIME.
[2018-11-18] MEDS ORDERED: ONDANSETRON ODT 4 MG PO PRN (13:00)
[2018-11-18] MEDS ORDERED: morphine SULFATE 10 MG/ML, 1ML IVPush PRN (13:00)
[2018-11-18] MEDS ORDERED: POLYETHYLENE GLYCOL 17 GM PACKET PO PRN (13:00)
[2018-11-18] MEDS ORDERED: LABETALOL 5MG/ML, 20ML IVPush PRN (13:00)
[2018-11-18] MEDS ORDERED: ONDANSETRON 2MG/ML, 2ML IVPush PRN (13:00)
[2018-11-18 13:27] LABS: TROPONIN I 0.052 ng/mL (0.000-0.045)
--- NOTE | 2018-11-18 13:30 | NUR ---
DIET TRAY ORDERED.
[2018-11-18] MEDS ORDERED: FUROSEMIDE 20 MG/2 ML ONE ×2 (13:42→17:41)
--- NOTE | 2018-11-18 14:14 | NUR ---
BLOOD GLUCOSE FINGERSTICK 111. DIABETIC CARDIAC DIET GIVEN TO PT.
[2018-11-18] MEDS ORDERED: INSU100V8 SQ (14:44)
[2018-11-18] MEDS ORDERED: ENOXAPARIN 40 MG/0.4 ML ONE (15:19)
[2018-11-18] MEDS: ENOXAPARIN 40 MG/0.4 ML SQ SCH (15:22)
--- NOTE | 2018-11-18 15:54 | NUR ---
NEURO CHECK DONE. PT ABLE TO EAT MEAL TRAY.
[2018-11-18] MEDS ORDERED: GLUCAGON 1 MG IM PRN (16:30)
[2018-11-18] MEDS ORDERED: DEXTROSE 4 GM TAB.CHEW PO PRN (16:30)
[2018-11-18] MEDS ORDERED: DEXTROSE 50%, 50ML SYRINGE IVPush PRN (16:30)
--- NOTE | 2018-11-18 16:33 | NUR ---
PT RESTING IN BED. MEAL TRAY ORDERED.
--- NOTE | 2018-11-18 16:43 | NUR ---
US AT BEDSIDE. LAB INTO DRAW TROPONIN EVERY 6 HOURS.
[2018-11-18] MEDS ORDERED: FUROSEMIDE 20 MG/2 ML IV SCH (17:00)
[2018-11-18 17:15] LABS: CHOLESTEROL, TOTAL 134 mg/dL (140-239); TRIGLYCERIDES 125 mg/dL (50-200); VLDL CHOLESTEROL 25 mg/dL (0-25)
[2018-11-18 17:18] LABS: CHOL/HDL RATIO 2.7; HDL CHOL % 37 % (26-37); HDL CHOLESTEROL (DIRECT) 49 mg/dL (40-60); LDL CHOLESTEROL,CALCULATED 60 mg/dL (54-169); LDL/HDL RATIO 1.2 (0.5-3.0); TROPONIN I 0.056 ng/mL (0.000-0.045)
[2018-11-18 17:32] LABS: HEMOGLOBIN A1C 12.6 % (4.2-6.3)
[2018-11-18] MEDS: INSULIN LISPRO 100 UNITS/ML, PEN SQ-INSULIN SCH ×2 (17:42→21:40)
[2018-11-18] MEDS ORDERED: INSULIN LISPRO 100 UNITS/ML, PEN ONE (17:43)
[2018-11-18] MEDS: FUROSEMIDE 20 MG/2 ML IV SCH (17:54)
--- NOTE | 2018-11-18 17:54 | NUR ---
BLOOD GLUCOSE 180- HUMALOG 3 UNITS GIVEN SQ. DOUBLE CHECKED WITH FESTUS TRUONG. LASIX 20MG IV GIVEN. PRIOR 20MG LASIX GIVEN PREVIOUSLY.
--- NOTE | 2018-11-18 17:56 | NUR ---
ADA 1800 AND CARDIAC DIET TRAY GIVEN TO PT.
[2018-11-18] MEDS ORDERED: WARFARIN 7.5 MG TABLET PO-COUM ONE (18:30)
[2018-11-18 18:54] LABS: TROPONIN I 0.059 ng/mL (0.000-0.045)
--- NOTE | 2018-11-18 19:05 | NUR ---
REPORT GIVEN TO DAVID TRUONG
[2018-11-18] MEDS: CARVEDILOL 12.5 MG TABLET PO SCH (19:30)
--- NOTE | 2018-11-18 19:36 | NUR ---
PT SITTING UP IN ROOM WATCHING TV, DENIES PAIN, MEDICATED PER MAR, REAPPLIED MONITORS, CALL LIGHT WITHIN REACH.
[2018-11-18 20:42] VITALS: BP 175/102
[2018-11-18 21:34] LABS: TROPONIN I 0.059 ng/mL (0.000-0.045)
[2018-11-18] MEDS: SODIUM CHLORIDE FLUSH 10ML SYR IVF SCH (21:40)
[2018-11-18] MEDS: ATORVASTATIN 80 MG TABLET PO SCH (21:43)
[2018-11-19 01:11] VITALS: BP 115/56
[2018-11-19 05:14] VITALS: BP 102/66
[2018-11-19] MEDS: CARVEDILOL 12.5 MG TABLET PO SCH ×2 (05:15→18:25)
[2018-11-19 05:32] LABS: BASOPHILS # (AUTO) 0.08 x10^3/uL (0-0.1); BASOPHILS % (AUTO) 1 % (0-1); EOSINOPHILS # (AUTO) 0.33 x10^3/uL (0-0.4); EOSINOPHILS % (AUTO) 5 % (1-7); LYMPHOCYTES # (AUTO) 1.46 x10^3/uL (1-3.4); LYMPHOCYTES % (AUTO) 22 % (22-44); MD NO; MEAN CORPUSCULAR HGB CONC 32.8 g/dL (33.2-36.2); MEAN CORPUSCULAR VOLUME 82.1 fL (81-97); MEAN PLATELET VOLUME 8.9 fL (7.4-10.4); MONOCYTES # (AUTO) 0.82 x10^3/uL (0.2-0.8); MONOCYTES % (AUTO) 12 % (2-9); NEUTROPHILS # (AUTO) 4.01 x10^3/uL (1.8-6.8); NEUTROPHILS % (AUTO) 60 % (42-75); PLATELET COUNT 332 x10^3/uL (130-400); RED BLOOD COUNT 3.54 x10^6/uL (4.38-5.82); RED CELL DISTRIBUTION WIDTH 15.7 % (9.4-14.8)
[2018-11-19 05:38] LABS: INTERNATIONAL NORMALIZED RATIO 1.06 (0.93-1.1); PROTHROMBIN TIME 11.1 Seconds (9.6-11.5)
[2018-11-19 05:45] LABS: ALBUMIN 1.8 g/dL (3.4-5.0); ANION GAP 5 mmol/L (5-15); CHLORIDE 112 mmol/L (98-107)
[2018-11-19 05:58] LABS: ALANINE AMINOTRANSFERASE 19 U/L (12-78); ALKALINE PHOSPHATASE 117 U/L (45-117); BILIRUBIN,TOTAL 0.3 mg/dL (0.2-1.0); CREATININE 3.07 mg/dL (0.7-1.3); TOTAL PROTEIN 5.7 g/dL (6.4-8.2)
[2018-11-19 07:30] VITALS: BP 111/63
[2018-11-19] MEDS: PANTOPRAZOLE 40 MG IV IVPush SCH (07:58)
[2018-11-19] MEDS: SODIUM CHLORIDE FLUSH 10ML SYR IVF SCH ×2 (07:58→21:09)
[2018-11-19] MEDS: FUROSEMIDE 20 MG/2 ML IV SCH ×2 (07:58→18:25)
[2018-11-19] MEDS: SENNA/DOCUSATE TABLET PO SCH (07:58)
[2018-11-19] MEDS: INSULIN GLARGINE 100 UNITS/ML, PEN SQ-INSULIN SCH (08:51)
[2018-11-19] MEDS: INSULIN LISPRO 100 UNITS/ML, PEN SQ-INSULIN SCH ×4 (08:51→21:09)
[2018-11-19 13:40] VITALS: BP 114/68
[2018-11-19] MEDS: ENOXAPARIN 40 MG/0.4 ML SQ SCH (16:01)
[2018-11-19] MEDS ORDERED: WARFARIN 7.5 MG TABLET PO-COUM ONE (18:00)
[2018-11-19 18:22] VITALS: BP 100/61
[2018-11-19 20:48] VITALS: BP 110/67
[2018-11-19] MEDS: ATORVASTATIN 80 MG TABLET PO SCH (21:08)
[2018-11-20 01:55] VITALS: BP 110/69
[2018-11-20 05:32] LABS: INTERNATIONAL NORMALIZED RATIO 1.09 (0.93-1.1); PROTHROMBIN TIME 11.4 Seconds (9.6-11.5)
[2018-11-20] MEDS: CARVEDILOL 12.5 MG TABLET PO SCH ×2 (05:37→17:18)
[2018-11-20 07:30] VITALS: BP 109/61
[2018-11-20 08:20] LABS: BASOPHILS # (AUTO) 0.03 x10^3/uL (0-0.1); BASOPHILS % (AUTO) 0 % (0-1); EOSINOPHILS # (AUTO) 0.26 x10^3/uL (0-0.4); EOSINOPHILS % (AUTO) 4 % (1-7); LYMPHOCYTES # (AUTO) 1.15 x10^3/uL (1-3.4); LYMPHOCYTES % (AUTO) 16 % (22-44); MD NO; MEAN CORPUSCULAR HEMOGLOBIN 26.3 pg (27.5-34.5); MEAN CORPUSCULAR VOLUME 82.1 fL (81-97); MEAN PLATELET VOLUME 9.3 fL (7.4-10.4); MONOCYTES # (AUTO) 0.69 x10^3/uL (0.2-0.8); MONOCYTES % (AUTO) 10 % (2-9); NEUTROPHILS # (AUTO) 5.01 x10^3/uL (1.8-6.8); NEUTROPHILS % (AUTO) 70 % (42-75); PLATELET COUNT 348 x10^3/uL (130-400); RED BLOOD COUNT 3.69 x10^6/uL (4.38-5.82); RED CELL DISTRIBUTION WIDTH 15.2 % (9.4-14.8)
[2018-11-20 08:24] LABS: ALANINE AMINOTRANSFERASE 21 U/L (12-78); ANION GAP 7 mmol/L (5-15); CHLORIDE 112 mmol/L (98-107); CREATININE 3.18 mg/dL (0.7-1.3)
[2018-11-20 08:26] LABS: ALKALINE PHOSPHATASE 121 U/L (45-117); BILIRUBIN,TOTAL 0.3 mg/dL (0.2-1.0); TOTAL PROTEIN 6.1 g/dL (6.4-8.2)
[2018-11-20] MEDS: INSULIN LISPRO 100 UNITS/ML, PEN SQ-INSULIN SCH ×4 (08:29→20:02)
[2018-11-20] MEDS: SODIUM CHLORIDE FLUSH 10ML SYR IVF SCH ×2 (08:54→20:04)
[2018-11-20] MEDS: INSULIN GLARGINE 100 UNITS/ML, PEN SQ-INSULIN SCH (08:54)
[2018-11-20] MEDS: PANTOPRAZOLE 40 MG IV IVPush SCH (08:54)
[2018-11-20] MEDS: SENNA/DOCUSATE TABLET PO SCH (08:54)
[2018-11-20] MEDS: FUROSEMIDE 20 MG/2 ML IV SCH ×2 (08:54→09:00)
[2018-11-20 14:10] VITALS: BP 118/76
[2018-11-20] MEDS: ENOXAPARIN 40 MG/0.4 ML SQ SCH (17:17)
[2018-11-20] MEDS ORDERED: WARFARIN 10 MG TABLET PO-COUM ONE (18:00)
[2018-11-20] MEDS: ATORVASTATIN 80 MG TABLET PO SCH (19:58)
[2018-11-20 21:11] VITALS: BP 121/80
[2018-11-21 01:07] VITALS: BP 103/64
[2018-11-21 05:02] LABS: INTERNATIONAL NORMALIZED RATIO 1.29 (0.93-1.1); PROTHROMBIN TIME 13.4 Seconds (9.6-11.5)
[2018-11-21] MEDS ORDERED: PANTOPROZOLE 40MG TABLET PO SCH (06:00)
[2018-11-21] MEDS: CARVEDILOL 12.5 MG TABLET PO SCH (06:33)
[2018-11-21] MEDS: INSULIN LISPRO 100 UNITS/ML, PEN SQ-INSULIN SCH ×2 (07:00→10:50)
[2018-11-21 08:20] VITALS: BP 106/65
[2018-11-21] MEDS: INSULIN GLARGINE 100 UNITS/ML, PEN SQ-INSULIN SCH (08:55)
[2018-11-21] MEDS: FUROSEMIDE 20 MG/2 ML IV SCH (08:56)
[2018-11-21] MEDS: SODIUM CHLORIDE FLUSH 10ML SYR IVF SCH (08:56)
[2018-11-21] MEDS: SENNA/DOCUSATE TABLET PO SCH (08:56)
[2018-11-21 08:58] LABS: BASOPHILS # (AUTO) 0.06 x10^3/uL (0-0.1); BASOPHILS % (AUTO) 1 % (0-1); EOSINOPHILS # (AUTO) 0.26 x10^3/uL (0-0.4); EOSINOPHILS % (AUTO) 4 % (1-7); LYMPHOCYTES # (AUTO) 1.39 x10^3/uL (1-3.4); LYMPHOCYTES % (AUTO) 22 % (22-44); MD NO; MEAN CORPUSCULAR HEMOGLOBIN 25.8 pg (27.5-34.5); MEAN CORPUSCULAR HGB CONC 31.6 g/dL (33.2-36.2); MEAN CORPUSCULAR VOLUME 81.5 fL (81-97); MEAN PLATELET VOLUME 8.8 fL (7.4-10.4); MONOCYTES # (AUTO) 0.73 x10^3/uL (0.2-0.8); MONOCYTES % (AUTO) 11 % (2-9); NEUTROPHILS # (AUTO) 3.97 x10^3/uL (1.8-6.8); NEUTROPHILS % (AUTO) 62 % (42-75); PLATELET COUNT 363 x10^3/uL (130-400); RED BLOOD COUNT 3.72 x10^6/uL (4.38-5.82); RED CELL DISTRIBUTION WIDTH 15.6 % (9.4-14.8)
[2018-11-21 09:09] LABS: ALANINE AMINOTRANSFERASE 27 U/L (12-78); CALCIUM 8.1 mg/dL (8.5-10.1); CHLORIDE 112 mmol/L (98-107); CREATININE 3.27 mg/dL (0.7-1.3)
[2018-11-21 09:10] LABS: ALKALINE PHOSPHATASE 129 U/L (45-117); BILIRUBIN,TOTAL 0.2 mg/dL (0.2-1.0); TOTAL PROTEIN 6.2 g/dL (6.4-8.2)
[2018-11-21 09:17] LABS: ANION GAP 5 mmol/L (5-15)
[2018-11-21] MEDS ORDERED: LISI-167 PO (11:58)
[2018-11-21] MEDS ORDERED: FURO40TA6 PO (11:58)
[2018-11-21] MEDS ORDERED: POTA10CA PO (11:59)
[2018-11-21] MEDS ORDERED: WARFARIN 7.5 MG TABLET PO-COUM ONE (12:21)
[2018-11-21] MEDS ORDERED: FUROSEMIDE 40 MG TABLET ONE (12:24)
[2018-11-21] MEDS ORDERED: POTASSIUM CHLORIDE 20 MEQ TAB.ER.PRT ONE (12:24)
[2018-11-21] MEDS ORDERED: WARFARIN 10 MG TABLET PO-COUM ONE (18:00)
== END 2018-11-21 13:46 | disposition home health service (06) | DRG 291 ==
LOC: ED 11:11 → EDIP 12:46 → 5SO 20:18 → DCLOUNGE 11-21 13:25
PROVIDERS: ADMIT Hospitalist; ATTEND Hospitalist
DX: I13.0 Hypertensive heart and chronic kidney disease with heart failure and stage 1 through stage 4 chronic kidney disease, or unspecified chronic kidney disease (principal); I50.41 Acute combined systolic (congestive) and diastolic (congestive) heart failure; J96.01 Acute respiratory failure with hypoxia; D68.69 Other thrombophilia; J98.11 Atelectasis; N17.9 Acute kidney failure, unspecified; D64.9 Anemia, unspecified; E11.22 Type 2 diabetes mellitus with diabetic chronic kidney disease; E78.5 Hyperlipidemia, unspecified; I25.10 Atherosclerotic heart disease of native coronary artery without angina pectoris; I25.5 Ischemic cardiomyopathy; N18.3 Chronic kidney disease, stage 3 (moderate); Z83.3 Family history of diabetes mellitus; Z86.718 Personal history of other venous thrombosis and embolism; Z87.891 Personal history of nicotine dependence; Z95.0 Presence of cardiac pacemaker; Z95.1 Presence of aortocoronary bypass graft
CPT/HCPCS: 36415; 71045; 80048; 80053; 80061; 82040; 82962; 83036; 83605; 83735; 83880; 84100; 84145; 84439; 84443; 84484; 85025; 85610; 85730; 90656; 93005; 93306; 96372; 96374; 99285; G0378; J1650; C9113; J1815; J1940

== ENCOUNTER 2018-11-28 17:43 | Inpatient (IN) | payer MEDICAID ==
[~2018-11-28] VITALS: Ht 182.9 cm; Wt 123.3 kg
[~2018-11-28 17:43] MED LIST changes: +POTA10CA PO
[2018-11-28 18:30] LABS: MEAN CORPUSCULAR HEMOGLOBIN 26.5 pg (27.5-34.5); MEAN CORPUSCULAR HGB CONC 32.8 g/dL (33.2-36.2); MEAN CORPUSCULAR VOLUME 80.7 fL (81-97); MEAN PLATELET VOLUME 8.8 fL (7.4-10.4); PLATELET COUNT 367 x10^3/uL (130-400); RED CELL DISTRIBUTION WIDTH 15.9 % (9.4-14.8)
[2018-11-28 18:33] LABS: INTERNATIONAL NORMALIZED RATIO 4.29 (0.93-1.1); PROTHROMBIN TIME 42.6 Seconds (9.6-11.5)
[2018-11-28 18:35] LABS: ALANINE AMINOTRANSFERASE 53 U/L (12-78); ALBUMIN 2.3 g/dL (3.4-5.0); ANION GAP 6 mmol/L (5-15); CALCIUM 7.6 mg/dL (8.5-10.1); CHLORIDE 117 mmol/L (98-107)
[2018-11-28 18:39] LABS: ALKALINE PHOSPHATASE 198 U/L (45-117); BILIRUBIN,TOTAL 0.2 mg/dL (0.2-1.0); TOTAL PROTEIN 6.5 g/dL (6.4-8.2)
[2018-11-28 18:57] LABS: BASOPHILS # (AUTO) 0.06 x10^3/uL (0-0.1); BASOPHILS % (AUTO) 1 % (0-1); EOSINOPHILS # (AUTO) 0.23 x10^3/uL (0-0.4); EOSINOPHILS % (AUTO) 3 % (1-7); LYMPHOCYTES # (AUTO) 1.61 x10^3/uL (1-3.4); LYMPHOCYTES % (AUTO) 22 % (22-44); MD SCAN; MONOCYTES # (AUTO) 0.63 x10^3/uL (0.2-0.8); MONOCYTES % (AUTO) 8 % (2-9); NEUTROPHILS # (AUTO) 4.91 x10^3/uL (1.8-6.8); NEUTROPHILS % (AUTO) 66 % (42-75)
[2018-11-28] MEDS ORDERED: FUROSEMIDE 40 MG/4 ML IV ONE (19:00)
[2018-11-28] MEDS ORDERED: SODIUM CHLORIDE FLUSH 10ML SYR IVF PRN (19:00)
[2018-11-28] MEDS ORDERED: FUROSEMIDE 40 MG/4 ML ONE (19:04)
--- NOTE | 2018-11-28 19:24 | NUR ---
PT RESTING ON GURNEY, MEDICATED PER MAR, FAMILY AT BEDSIDE, MONITORS IN PLACE, SIDERAILS UP X2, CALL LIGHT WITHIN REACH. AWAITING ROOM FOR ADMIT
[2018-11-28] MEDS ORDERED: GABAPENTIN 300 MG CAPSULE PO PRN (20:00)
[2018-11-28] MEDS ORDERED: TEMAZEPAM 15 MG CAPSULE PO PRN (20:00)
[2018-11-28] MEDS ORDERED: LIDODERM 5% PATCH TD PRN (20:00)
[2018-11-28] MEDS ORDERED: ACETAMINOPHEN 325 MG TABLET PO PRN (20:00)
[2018-11-28] MEDS ORDERED: hydrALAzine 20 MG/ML, 1ML IVPush PRN (20:00)
[2018-11-28] MEDS ORDERED: LABETALOL 5MG/ML, 20ML IVPush PRN (20:00)
[2018-11-28] MEDS ORDERED: WARFARIN SODIUM 7.5 MG PO-COUM SCH (20:00)
[2018-11-28] MEDS ORDERED: BISACODYL 10 MG SUPP PR PRN (20:00)
[2018-11-28 20:31] VITALS: BP 157/90
[2018-11-29 00:09] VITALS: BP 156/93
[2018-11-29] MEDS: CARVEDILOL 12.5 MG TABLET PO SCH ×3 (00:15→17:16)
[2018-11-29] MEDS: ATORVASTATIN 80 MG TABLET PO SCH ×2 (00:16→21:34)
[2018-11-29] MEDS: INSULIN LISPRO 100 UNITS/ML, PEN SQ-INSULIN SCH ×5 (00:16→21:48)
[2018-11-29 00:56] VITALS: BP 143/82
[2018-11-29 05:57] VITALS: BP 122/69
[2018-11-29 06:00] LABS: BASOPHILS # (AUTO) 0.05 x10^3/uL (0-0.1); BASOPHILS % (AUTO) 1 % (0-1); EOSINOPHILS % (AUTO) 5 % (1-7); LYMPHOCYTES # (AUTO) 1.91 x10^3/uL (1-3.4); LYMPHOCYTES % (AUTO) 25 % (22-44); MD NO; MEAN CORPUSCULAR HEMOGLOBIN 26.7 pg (27.5-34.5); MEAN CORPUSCULAR HGB CONC 33.4 g/dL (33.2-36.2); MEAN PLATELET VOLUME 8.7 fL (7.4-10.4); MONOCYTES # (AUTO) 0.69 x10^3/uL (0.2-0.8); MONOCYTES % (AUTO) 9 % (2-9); NEUTROPHILS # (AUTO) 4.54 x10^3/uL (1.8-6.8); NEUTROPHILS % (AUTO) 60 % (42-75); PLATELET COUNT 364 x10^3/uL (130-400); RED BLOOD COUNT 3.55 x10^6/uL (4.38-5.82); RED CELL DISTRIBUTION WIDTH 15.9 % (9.4-14.8)
[2018-11-29 06:05] LABS: INTERNATIONAL NORMALIZED RATIO 4.23 (0.93-1.1)
[2018-11-29 06:09] LABS: CALCIUM 7.9 mg/dL (8.5-10.1); CHLORIDE 116 mmol/L (98-107)
[2018-11-29 06:12] LABS: ANION GAP 7 mmol/L (5-15); CREATININE 2.89 mg/dL (0.7-1.3)
[2018-11-29 07:33] VITALS: BP 124/73
[2018-11-29] MEDS: POTASSIUM CHLORIDE 20 MEQ TAB.ER.PRT PO SCH (09:24)
[2018-11-29] MEDS: OMEPRAZOLE 20 MG CAPSULE.DR PO SCH (09:24)
[2018-11-29] MEDS: FUROSEMIDE 40 MG/4 ML IV SCH ×2 (09:24→17:16)
[2018-11-29] MEDS: INSULIN GLARGINE 100 UNITS/ML, PEN SQ-INSULIN SCH ×2 (09:36→21:48)
[2018-11-29 15:54] VITALS: BP 139/78
[2018-11-29 21:34] VITALS: BP 137/85
[2018-11-30 03:59] VITALS: BP 108/58
[2018-11-30] MEDS: CARVEDILOL 12.5 MG TABLET PO SCH (04:56)
[2018-11-30 05:41] LABS: BASOPHILS # (AUTO) 0.08 x10^3/uL (0-0.1); BASOPHILS % (AUTO) 1 % (0-1); EOSINOPHILS # (AUTO) 0.31 x10^3/uL (0-0.4); EOSINOPHILS % (AUTO) 5 % (1-7); LYMPHOCYTES # (AUTO) 1.72 x10^3/uL (1-3.4); LYMPHOCYTES % (AUTO) 27 % (22-44); MD NO; MEAN CORPUSCULAR HGB CONC 32.1 g/dL (33.2-36.2); MEAN CORPUSCULAR VOLUME 80.8 fL (81-97); MEAN PLATELET VOLUME 8.5 fL (7.4-10.4); MONOCYTES # (AUTO) 0.73 x10^3/uL (0.2-0.8); MONOCYTES % (AUTO) 11 % (2-9); NEUTROPHILS # (AUTO) 3.64 x10^3/uL (1.8-6.8); NEUTROPHILS % (AUTO) 56 % (42-75); PLATELET COUNT 354 x10^3/uL (130-400); RED BLOOD COUNT 3.58 x10^6/uL (4.38-5.82); RED CELL DISTRIBUTION WIDTH 15.6 % (9.4-14.8)
[2018-11-30 05:46] LABS: INTERNATIONAL NORMALIZED RATIO 2.23 (0.93-1.1); PROTHROMBIN TIME 22.7 Seconds (9.6-11.5)
[2018-11-30 05:53] LABS: ANION GAP 7 mmol/L (5-15); CHLORIDE 118 mmol/L (98-107)
[2018-11-30 05:54] LABS: CREATININE 2.62 mg/dL (0.7-1.3)
[2018-11-30] MEDS: INSULIN LISPRO 100 UNITS/ML, PEN SQ-INSULIN SCH ×2 (07:00→11:00)
[2018-11-30 07:49] VITALS: BP 118/75
[2018-11-30] MEDS: POTASSIUM CHLORIDE 20 MEQ TAB.ER.PRT PO SCH (08:15)
[2018-11-30] MEDS: FUROSEMIDE 40 MG/4 ML IV SCH (08:15)
[2018-11-30] MEDS: OMEPRAZOLE 20 MG CAPSULE.DR PO SCH (08:15)
== END 2018-11-30 13:05 | disposition home or self-care (01) | DRG 291 ==
LOC: ED 18:45 → EDIP 18:54 → 5SO 20:17 → DCLOUNGE 11-30 12:50
PROVIDERS: ADMIT Family Medicine; ATTEND Family Medicine
DX: I13.0 Hypertensive heart and chronic kidney disease with heart failure and stage 1 through stage 4 chronic kidney disease, or unspecified chronic kidney disease (principal); I50.33 Acute on chronic diastolic (congestive) heart failure; N18.3 Chronic kidney disease, stage 3 (moderate); I87.2 Venous insufficiency (chronic) (peripheral); E88.09 Other disorders of plasma-protein metabolism, not elsewhere classified; R79.1 Abnormal coagulation profile; T45.515A Adverse effect of anticoagulants, initial encounter; I25.10 Atherosclerotic heart disease of native coronary artery without angina pectoris; E78.5 Hyperlipidemia, unspecified; F10.21 Alcohol dependence, in remission; F14.90 Cocaine use, unspecified, uncomplicated; I25.5 Ischemic cardiomyopathy; E11.40 Type 2 diabetes mellitus with diabetic neuropathy, unspecified; E11.22 Type 2 diabetes mellitus with diabetic chronic kidney disease; E11.21 Type 2 diabetes mellitus with diabetic nephropathy; E11.65 Type 2 diabetes mellitus with hyperglycemia; F15.90 Other stimulant use, unspecified, uncomplicated; E66.01 Morbid (severe) obesity due to excess calories; D50.9 Iron deficiency anemia, unspecified; Y92.89 Other specified places as the place of occurrence of the external cause; Z86.718 Personal history of other venous thrombosis and embolism; Z95.1 Presence of aortocoronary bypass graft; Z95.0 Presence of cardiac pacemaker; Z79.4 Long term (current) use of insulin; Z87.891 Personal history of nicotine dependence; Z79.01 Long term (current) use of anticoagulants; Z83.3 Family history of diabetes mellitus; Z68.36 Body mass index [BMI] 36.0-36.9, adult; Z79.899 Other long term (current) drug therapy
CPT/HCPCS: 36415; 71045; 80048; 80053; 82962; 83880; 85025; 85610; 93005; 96374; G0378; J1940; J1815

== ENCOUNTER 2018-12-24 05:56 | Emergency (ER) | payer MEDICAID ==
[~2018-12-24] VITALS: Ht 182.9 cm; Wt 126.0 kg
[2018-12-24] MEDS ORDERED: LIDOCAINE 1%-EPI 1:100K, 20ML ONE (06:25)
[2018-12-24] MEDS ORDERED: TRANEXAMIC ACID 100 MG/ML, 10ML ONE (06:25)
[2018-12-24] MEDS ORDERED: TRANEXAMIC ACID 100 MG/ML, 10ML TP ONE (06:30)
[2018-12-24] MEDS ORDERED: DIPH,PERTUSS(ACELL),TET VAC/PF 0.5 ML IM-VACC ONE ×2 (06:30→07:15)
[2018-12-24] MEDS ORDERED: LIDOCAINE 1%-EPI 1:100K, 20ML SQ ONE (06:30)
[2018-12-24 06:31] LABS: BASOPHILS # (AUTO) 0.04 x10^3/uL (0-0.1); BASOPHILS % (AUTO) 1 % (0-1); EOSINOPHILS # (AUTO) 0.27 x10^3/uL (0-0.4); EOSINOPHILS % (AUTO) 4 % (1-7); LYMPHOCYTES # (AUTO) 1.22 x10^3/uL (1-3.4); LYMPHOCYTES % (AUTO) 20 % (22-44); MD NO; MEAN CORPUSCULAR HEMOGLOBIN 24.8 pg (27.5-34.5); MEAN CORPUSCULAR HGB CONC 31.9 g/dL (33.2-36.2); MEAN CORPUSCULAR VOLUME 77.9 fL (81-97); MONOCYTES # (AUTO) 0.61 x10^3/uL (0.2-0.8); MONOCYTES % (AUTO) 10 % (2-9); NEUTROPHILS # (AUTO) 4.09 x10^3/uL (1.8-6.8); NEUTROPHILS % (AUTO) 66 % (42-75); PLATELET COUNT 350 x10^3/uL (130-400); RED BLOOD COUNT 3.81 x10^6/uL (4.38-5.82); RED CELL DISTRIBUTION WIDTH 16.6 % (9.4-14.8)
--- NOTE | 2018-12-24 06:37 | NUR ---
PT HERE FOR LAC TO RIGHT LOWER LEG. PT CUT HIMSELF WHILE CUTTING OFF COMPRESSION SOCK. PT ON COUMADIN. PRESSURE DRESSING IN PLACE AND BLEEDING CONTROLLED. PA AT BEDSIDE TO ASSESS WOUND. CALL LIGHT IN REACH
[2018-12-24 06:42] LABS: INTERNATIONAL NORMALIZED RATIO 2.13 (0.93-1.1); PROTHROMBIN TIME 21.7 Seconds (9.6-11.5)
[2018-12-24 06:44] LABS: ALBUMIN 2.2 g/dL (3.4-5.0); ANION GAP 6 mmol/L (5-15); CHLORIDE 113 mmol/L (98-107); CREATININE 2.66 mg/dL (0.7-1.3)
--- NOTE | 2018-12-24 06:50 | NUR ---
RECEIVED REPORT FROM JUAN TRUONG, PLAN OF CARE DISCUSSED
[2018-12-24 07:23] VITALS: BP 163/96
[2018-12-24] MEDS ORDERED: BACITRACIN ZINC OINT 500U/GM, 0.9 GM ONE (07:28)
--- NOTE | 2018-12-24 07:43 | NUR ---
Patient/Caregiver given discharge instructions and they have confirmed that they understand the instructions. Patient ambulatory with steady gait.
== END 2018-12-24 07:45 | disposition home or self-care (01) ==
LOC: ED 07:39
DX: S81.811A Laceration without foreign body, right lower leg, initial encounter (principal); I50.9 Heart failure, unspecified; I25.10 Atherosclerotic heart disease of native coronary artery without angina pectoris; E78.5 Hyperlipidemia, unspecified; I11.0 Hypertensive heart disease with heart failure; E11.21 Type 2 diabetes mellitus with diabetic nephropathy; W45.8XXA Other foreign body or object entering through skin, initial encounter; Y93.89 Activity, other specified; Y92.009 Unspecified place in unspecified non-institutional (private) residence as the place of occurrence of the external cause; Y99.8 Other external cause status
CPT/HCPCS: 12031; 36415; 80048; 82040; 85025; 85610; 90471; 90715

== ENCOUNTER 2019-08-26 12:52 | Emergency (ER) | payer MEDICAID ==
[~2019-08-26] VITALS: Ht 185.4 cm; Wt 105.0 kg
[~2019-08-26 12:52] MED LIST changes: +ACID1TAB7 PO; +CLAR-36 PO; -CLAR500T PO; -DOCU50LI12 PO; +DOCU50LI26 PO; +ERGO500017 PO; +HYDR-3343 PO; +ISOS10TA2 PO; +PANT40TA5 PO; +SEVE800T8 PO; +SODI650T PO; +SPIR25TA5 PO; +TAMS-11 PO; +WARF7.5T PO
--- NOTE | 2019-08-26 13:43 | NUR ---
PT REPORTS COUGH, CONGESTION, NAUSEA, VOMITING, ACID REFLUX, AND CHILLS AT HOME X 2 WEEKS. PT [facility]. PT SITTING ON [employer] VSS.
[2019-08-26 13:48] LABS: BASOPHILS # (AUTO) 0.06 x10^3/uL (0-0.1); BASOPHILS % (AUTO) 1 % (0-1); EOSINOPHILS # (AUTO) 0.47 x10^3/uL (0-0.4); EOSINOPHILS % (AUTO) 6 % (1-7); LYMPHOCYTES # (AUTO) 1.01 x10^3/uL (1-3.4); LYMPHOCYTES % (AUTO) 12 % (22-44); MD NO; MEAN CORPUSCULAR HEMOGLOBIN 26.4 pg (27.5-34.5); MEAN CORPUSCULAR HGB CONC 31.8 g/dL (33.2-36.2); MEAN PLATELET VOLUME 8.3 fL (7.4-10.4); MONOCYTES # (AUTO) 0.71 x10^3/uL (0.2-0.8); MONOCYTES % (AUTO) 9 % (2-9); NEUTROPHILS # (AUTO) 5.94 x10^3/uL (1.8-6.8); NEUTROPHILS % (AUTO) 73 % (42-75); PLATELET COUNT 330 x10^3/uL (130-400); RED BLOOD COUNT 4.23 x10^6/uL (4.38-5.82); RED CELL DISTRIBUTION WIDTH 19.3 % (9.4-14.8)
[2019-08-26 14:01] LABS: ALANINE AMINOTRANSFERASE 29 U/L (12-78); ALBUMIN 3.1 g/dL (3.4-5.0); ANION GAP 10 mmol/L (5-15); CALCIUM 8.5 mg/dL (8.5-10.1); CHLORIDE 101 mmol/L (98-107); CREATININE 6.45 mg/dL (0.7-1.3)
[2019-08-26 14:05] LABS: ALKALINE PHOSPHATASE 107 U/L (45-117); BILIRUBIN,TOTAL 0.3 mg/dL (0.2-1.0); TOTAL PROTEIN 7.8 g/dL (6.4-8.2)
[2019-08-26] MEDS ORDERED: ONDANSETRON ODT 4 MG ONE (14:32)
[2019-08-26] MEDS ORDERED: FAMOTIDINE 20 MG TABLET ONE (14:33)
--- NOTE | 2019-08-26 14:34 | NUR ---
PT VOMITING, ERP AWARE
[2019-08-26 14:45] VITALS: BP 147/92
[2019-08-26] MEDS ORDERED: ONDANSETRON ODT 4 MG PO ONE (15:00)
[2019-08-26] MEDS ORDERED: FAMOTIDINE 20 MG TABLET PO ONE (15:00)
== END 2019-08-26 14:52 | disposition home or self-care (01) ==
LOC: ED 14:40
DX: K52.9 Noninfective gastroenteritis and colitis, unspecified (principal); R11.2 Nausea with vomiting, unspecified; B34.9 Viral infection, unspecified; E11.22 Type 2 diabetes mellitus with diabetic chronic kidney disease; I13.2 Hypertensive heart and chronic kidney disease with heart failure and with stage 5 chronic kidney disease, or end stage renal disease; N18.6 End stage renal disease; I50.9 Heart failure, unspecified; Z99.2 Dependence on renal dialysis; E78.5 Hyperlipidemia, unspecified; I25.10 Atherosclerotic heart disease of native coronary artery without angina pectoris; E11.21 Type 2 diabetes mellitus with diabetic nephropathy; J00 Acute nasopharyngitis [common cold]
CPT/HCPCS: 36415; 71045; 80053; 83880; 84484; 85025; 93005; 99284; Q0162

== ENCOUNTER → 2020-04-12 | Outpatient (CLI) | payer MEDICAID ==
[~2020-04-12] MED LIST changes: +CLAR-14 PO; -CLAR-36 PO
== END | disposition home or self-care (01) ==
LOC: RAD 09:41
PROVIDERS: ATTEND Internal Medicine Gastroenterology
DX: K30 Functional dyspepsia (principal); K21.9 Gastro-esophageal reflux disease without esophagitis; K92.1 Melena; R19.4 Change in bowel habit; I25.10 Atherosclerotic heart disease of native coronary artery without angina pectoris; E11.610 Type 2 diabetes mellitus with diabetic neuropathic arthropathy; I48.0 Paroxysmal atrial fibrillation; I12.0 Hypertensive chronic kidney disease with stage 5 chronic kidney disease or end stage renal disease; E11.22 Type 2 diabetes mellitus with diabetic chronic kidney disease; N18.6 End stage renal disease; R11.10 Vomiting, unspecified; Z79.4 Long term (current) use of insulin; Z79.01 Long term (current) use of anticoagulants
CPT/HCPCS: 78264; A9541

== ENCOUNTER 2020-06-22 18:02 | Emergency (ER) | payer MEDICAID ==
[~2020-06-22] VITALS: Ht 182.9 cm; Wt 103.0 kg
[~2020-06-22 18:02] MED LIST changes: -PANT40TA5 PO; +PANT40TA6 PO
--- NOTE | 2020-06-22 18:11 | NUR ---
RN CIRCULATING: EKG IN TRIAGE.
--- NOTE | 2020-06-22 19:20 | NUR ---
event marketing representative: Pt to room from lobby.
--- NOTE | 2020-06-22 19:35 | NUR ---
PT BIB SISTER. PT REPORTS THAT HE IS HAVING A LOT OF PRESSURE ON HIS CHEST, IS HAVING ABD PAIN, AND IS FEELING GENERALLY WEAK. PT REPORTS THAT HIS CP STARTED THIS MORNING WHEN HE WOKE UP AT 0700 AND GOT WORSE THROUGHOUT THE DAY. HE ALSO REPORTS HE HAS HAD N/V/D AND ABD PAIN THROUGHOUT THE DAY BUT IS NOT CURRENTLY HAVING ABD PAIN.
[2020-06-22] MEDS ORDERED: maalox/diphenh/lido/sucralfate 5 ML PO PRN (20:00)
[2020-06-22] MEDS ORDERED: MAALOX/HYOSCYAMINE/LIDOCAINE 45 ML BTL ONE (20:08)
[2020-06-22 20:18] LABS: BASOPHILS # (AUTO) 0.03 x10^3/uL (0-0.1); BASOPHILS % (AUTO) 1 % (0-1); EOSINOPHILS # (AUTO) 0.28 x10^3/uL (0-0.4); EOSINOPHILS % (AUTO) 4 % (1-7); LYMPHOCYTES # (AUTO) 1.49 x10^3/uL (1-3.4); LYMPHOCYTES % (AUTO) 22 % (22-44); MD NO; MEAN CORPUSCULAR HEMOGLOBIN 30.9 pg (27.5-34.5); MEAN CORPUSCULAR HGB CONC 32.7 g/dL (33.2-36.2); MEAN PLATELET VOLUME 8.2 fL (7.4-10.4); MONOCYTES # (AUTO) 0.62 x10^3/uL (0.2-0.8); MONOCYTES % (AUTO) 9 % (2-9); NEUTROPHILS # (AUTO) 4.52 x10^3/uL (1.8-6.8); NEUTROPHILS % (AUTO) 65 % (42-75); PLATELET COUNT 282 x10^3/uL (130-400); RED BLOOD COUNT 3.45 x10^6/uL (4.38-5.82); RED CELL DISTRIBUTION WIDTH 16.5 % (9.4-14.8)
[2020-06-22 20:21] LABS: ALANINE AMINOTRANSFERASE 30 U/L (12-78); ALBUMIN 3.3 g/dL (3.4-5.0); ANION GAP 9 mmol/L (5-15); CHLORIDE 100 mmol/L (98-107); CREATININE 8.93 mg/dL (0.7-1.3)
[2020-06-22 20:23] LABS: ALKALINE PHOSPHATASE 100 U/L (45-117); BILIRUBIN,TOTAL 0.5 mg/dL (0.2-1.0); TOTAL PROTEIN 7.6 g/dL (6.4-8.2)
[2020-06-22] MEDS ORDERED: MAALOX/HYOSCYAMINE/LIDOCAINE 45 ML BTL PO ONE (20:30)
[2020-06-22 21:44] VITALS: BP 135/72
== END 2020-06-22 21:52 | disposition home or self-care (01) ==
LOC: ED 20:55
DX: R19.7 Diarrhea, unspecified (principal); Z20.828 Contact with and (suspected) exposure to other viral communicable diseases; R07.89 Other chest pain; J02.9 Acute pharyngitis, unspecified; R06.02 Shortness of breath; E11.9 Type 2 diabetes mellitus without complications; I10 Essential (primary) hypertension; Z79.01 Long term (current) use of anticoagulants; Z95.1 Presence of aortocoronary bypass graft
CPT/HCPCS: 36415; 71045; 80053; 83690; 85025; 87635; 93005; 99285

== ENCOUNTER → 2021-03-01 | Outpatient (CLI) | payer MEDICAID ==
[~2021-03-01] MED LIST changes: +HYDR-2214 PO; -HYDR-3240 PO
== END | disposition home or self-care (01) ==
LOC: CVU 14:35
PROVIDERS: ATTEND Registered Nurse
DX: I08.3 Combined rheumatic disorders of mitral, aortic and tricuspid valves (principal); E11.22 Type 2 diabetes mellitus with diabetic chronic kidney disease; N18.9 Chronic kidney disease, unspecified; I12.9 Hypertensive chronic kidney disease with stage 1 through stage 4 chronic kidney disease, or unspecified chronic kidney disease; I25.5 Ischemic cardiomyopathy; Z95.1 Presence of aortocoronary bypass graft; Z95.0 Presence of cardiac pacemaker
CPT/HCPCS: C8929; Q9957

== ENCOUNTER → 2021-03-15 | Outpatient (CLI) | payer MEDICAID ==
[~2021-03-15] MED LIST changes: +GADOTERATE 10 MMOL/20ML SYR ONE
== END | disposition home or self-care (01) ==
LOC: RAD 08:41
PROVIDERS: ATTEND Student in an Organized Health Care Education/Training Program
DX: H90.3 Sensorineural hearing loss, bilateral (principal)
CPT/HCPCS: 70553; A9575

== ENCOUNTER 2021-04-22 02:07 | Inpatient (IN) | payer MEDICAID ==
[~2021-04-22] VITALS: Ht 182.9 cm; Wt 106.5 kg
[~2021-04-22 02:07] MED LIST changes: -GADOTERATE 10 MMOL/20ML SYR ONE
[2021-04-22 03:14] LABS: BASOPHILS % (AUTO) 1 % (0-1); EOSINOPHILS % (AUTO) 4 % (1-7); LYMPHOCYTES % (AUTO) 12 % (22-44); MEAN CORPUSCULAR HEMOGLOBIN 31.5 pg (27.5-34.5); MEAN CORPUSCULAR HGB CONC 33.8 g/dL (33.2-36.2); MEAN PLATELET VOLUME 8.4 fL (7.4-10.4); MONOCYTES % (AUTO) 10 % (2-9); NEUTROPHILS % (AUTO) 73 % (42-75); PLATELET COUNT 228 x10^3/uL (130-400); RED BLOOD COUNT 4.38 x10^6/uL (4.38-5.82); RED CELL DISTRIBUTION WIDTH 16.6 % (9.4-14.8)
[2021-04-22 03:21] LABS: INTERNATIONAL NORMALIZED RATIO 1.42 (0.93-1.1); PROTHROMBIN TIME 14.9 Seconds (9.6-11.5)
[2021-04-22 03:22] LABS: ALANINE AMINOTRANSFERASE 19 U/L (12-78); ANION GAP 9 mmol/L (5-15); CALCIUM 8.6 mg/dL (8.5-10.1); CHLORIDE 102 mmol/L (98-107); CREATININE 9.54 mg/dL (0.7-1.3)
[2021-04-22 03:26] LABS: ALKALINE PHOSPHATASE 141 U/L (45-117); BILIRUBIN,TOTAL 0.4 mg/dL (0.2-1.0); TOTAL PROTEIN 8.9 g/dL (6.4-8.2); TROPONIN I < 0.015 ng/mL (0.000-0.045)
[2021-04-22] MEDS ORDERED: LORazepam 2 MG/ML, 1ML IVPush ONE (03:30)
[2021-04-22] MEDS ORDERED: hydrALAzine 20 MG/ML, 1ML IV ONE ×2 (03:30→05:30)
[2021-04-22] MEDS ORDERED: hydrALAzine 20 MG/ML, 1ML ONE ×2 (03:31→05:31)
[2021-04-22] MEDS ORDERED: LORazepam 2 MG/ML, 1ML ONE (03:32)
--- NOTE | 2021-04-22 03:48 | NUR ---
MD LÓPEZ AWARE OF REPEAT BP AFTER HYDRALAZINE. ALSO AWARE PATIENT CONTINUES TO SCREAM OUT IN PAIN DUE TO MUSCLE CRAMPING/ PAIN IN HANDS AND LEGS. MD STATES HE WILL BE AT BEDSIDE FOR RECHECK.
[2021-04-22] MEDS ORDERED: ZIPRASIDONE 20 MG INJ IM ONE (04:30)
--- NOTE | 2021-04-22 05:54 | NUR ---
MD AWARE PATIENT CONTINUES TO SCREAM OUT "MOTHER FUCKER" IN PAIN DUE TO CRAMPING IN HANDS/ FEET. MD STATES HE WILL BE AT BEDSIDE FOR RE-EVAL.
[2021-04-22] MEDS ORDERED: HYDROmorphone 2 MG/ML, 1ML ONE ×2 (06:05→07:14)
[2021-04-22] MEDS ORDERED: HYDROmorphone 1 MG/ML, 1ML INJ IV ONE (06:30)
--- NOTE | 2021-04-22 06:55 | NUR ---
REPORT RECEIVED FROM JORGE LUIS. ASSUMING CARE OF PT. STATES PT TO BE ADMITTED HE IS UNSURE WHAT TO DO FOR PT AT THIS TIME AND PT STILL COMPLAINING OF PAIN.
--- NOTE | 2021-04-22 06:55 | NUR ---
REPORT GIVEN TO ALEXI CRUZ
--- NOTE | 2021-04-22 07:07 | NUR ---
PT AND UPDATED ON POC. PT STILL IN PAIN, CRAMPING IN BOTH ANDS AND LEGS/FEET. CALL LIGHT W/IN REACH.
[2021-04-22] MEDS ORDERED: HYDROmorphone 2 MG/ML, 1ML IVPush ONE (07:30)
[2021-04-22] MEDS ORDERED: MORPHINE SULFATE 4 MG/ML, 1ML IVPush PRN (07:30)
[2021-04-22] MEDS ORDERED: ONDANSETRON 2MG/ML, 2ML IVPush PRN ×2 (07:30→10:00)
--- NOTE | 2021-04-22 08:03 | NUR ---
CALLED TO GIVE REPORT, RN IN ISO ROOM.
--- NOTE | 2021-04-22 08:18 | NUR ---
REPORT GIVEN TO JONA, ANSWERED QUESTIONS. PT RTG.
[2021-04-22 08:26] LABS: TROPONIN I 0.089 ng/mL (0.000-0.045)
--- NOTE | 2021-04-22 08:42 | NUR ---
ROOM CHECK CALLED D/T PT O2 GOING INTO 70'S. PT WAS SLEEPING AND AFTER DILAUDID DESAT. PLACED ON 2L NC. NADN, CALL LIGHT W/IN REACH. WAITING FOR TRANSPORT.
[2021-04-22 09:32] VITALS: BP 180/92
[2021-04-22] MEDS ORDERED: OMEP40CA8 PO (09:42)
[2021-04-22] MEDS ORDERED: GABA300T2 PO (09:42)
[2021-04-22] MEDS ORDERED: ONDANSETRON ODT 4 MG PO PRN (10:00)
[2021-04-22] MEDS ORDERED: ACETAMINOPHEN 325 MG TABLET PO PRN (10:00)
[2021-04-22] MEDS ORDERED: HEPARIN 5,000 UNITS/ML, 1ML SQ SCH (10:00)
[2021-04-22] MEDS ORDERED: hydrALAzine 20 MG/ML, 1ML IVPush PRN (10:00)
[2021-04-22] MEDS ORDERED: LABETALOL 5MG/ML, 20ML IVPush PRN (10:00)
[2021-04-22] MEDS: HYDROmorphone 2 MG/ML, 1ML IVPush PRN ×4 (10:27→22:30)
[2021-04-22 10:40] VITALS: BP 134/82
[2021-04-22 10:54] LABS: TROPONIN I 0.193 ng/mL (0.000-0.045)
[2021-04-22 12:16] VITALS: BP 143/77
[2021-04-22 16:28] LABS: TROPONIN I 0.597 ng/mL (0.000-0.045)
[2021-04-22 16:53] VITALS: BP 146/75
[2021-04-22] MEDS ORDERED: HEPARIN 25,000 UNITS/250ML PMX 250 ML IV PRN (17:30)
[2021-04-22] MEDS ORDERED: HEPARIN 5,000 UNITS/ML, 1ML IV ONE (17:30)
[2021-04-22] MEDS ORDERED: HEPARIN 5,000 UNITS/ML, 1ML IV PRN (17:30)
[2021-04-22] MEDS ORDERED: LOPERAMIDE 2 MG CAPSULE PO PRN (18:00)
[2021-04-22 20:57] VITALS: BP 176/88
[2021-04-22 22:48] LABS: TROPONIN I 0.889 ng/mL (0.000-0.045)
[2021-04-22 23:29] VITALS: BP 158/80
[2021-04-23 00:54] VITALS: BP_SYST 150; BP_SYST 164; BP_DIAS 66; BP_DIAS 88
[2021-04-23] MEDS: HYDROmorphone 2 MG/ML, 1ML IVPush PRN ×3 (02:15→15:33)
[2021-04-23 02:35] LABS: BASOPHILS % (AUTO) 1 % (0-1); EOSINOPHILS % (AUTO) 2 % (1-7); LYMPHOCYTES % (AUTO) 6 % (22-44); MEAN CORPUSCULAR HEMOGLOBIN 31.1 pg (27.5-34.5); MEAN CORPUSCULAR HGB CONC 33.3 g/dL (33.2-36.2); MEAN PLATELET VOLUME 8.3 fL (7.4-10.4); MONOCYTES % (AUTO) 9 % (2-9); NEUTROPHILS % (AUTO) 83 % (42-75); PLATELET COUNT 232 x10^3/uL (130-400); RED BLOOD COUNT 4.29 x10^6/uL (4.38-5.82); RED CELL DISTRIBUTION WIDTH 16.7 % (9.4-14.8)
[2021-04-23 02:47] LABS: ALANINE AMINOTRANSFERASE 28 U/L (12-78); ALBUMIN 3.8 g/dL (3.4-5.0); ANION GAP 11 mmol/L (5-15); CALCIUM 8.5 mg/dL (8.5-10.1); CHLORIDE 100 mmol/L (98-107)
[2021-04-23 02:49] LABS: ALKALINE PHOSPHATASE 88 U/L (45-117); BILIRUBIN,TOTAL 0.7 mg/dL (0.2-1.0); TOTAL PROTEIN 8.7 g/dL (6.4-8.2)
[2021-04-23 06:40] VITALS: BP 169/87
[2021-04-23 07:08] LABS: TROPONIN I 0.602 ng/mL (0.000-0.045)
[2021-04-23] MEDS ORDERED: ASPIRIN 81 MG TABLET CHEW PO ONE (11:00)
[2021-04-23] MEDS: GABAPENTIN 300 MG CAPSULE PO SCH (11:37)
[2021-04-23] MEDS ORDERED: LIDOCAINE 2%, 20ML ONE (13:16)
[2021-04-23] MEDS ORDERED: FENTANYL PF 100 MCG/2ML ONE (13:16)
[2021-04-23] MEDS ORDERED: MIDAZOLAM 1 MG/ML, 2ML ONE (13:16)
[2021-04-23] MEDS ORDERED: METOPROLOL 1 MG/ML, 5ML ONE (14:16)
[2021-04-23 14:50] VITALS: BP 164/83
[2021-04-23] MEDS: ISOSORBIDE DINITRATE 10 MG TABLET PO SCH ×2 (17:00→20:55)
[2021-04-23] MEDS: CARVEDILOL 25 MG TABLET PO SCH (17:00)
[2021-04-23] MEDS ORDERED: WARFARIN 7.5 MG TABLET PO-COUM SCH (18:00)
[2021-04-23] MEDS ORDERED: CARVEDILOL 12.5 MG TABLET PO SCH (18:00)
[2021-04-23 20:00] VITALS: BP 127/65
[2021-04-23] MEDS: AMLODIPINE 5 MG TABLET PO SCH (20:55)
[2021-04-23] MEDS ORDERED: ATORVASTATIN 80 MG TABLET PO SCH (21:00)
[2021-04-24 02:31] VITALS: BP 137/70
[2021-04-24] MEDS: HYDROmorphone 2 MG/ML, 1ML IVPush PRN (02:33)
[2021-04-24 05:27] LABS: BASOPHILS % (AUTO) 1 % (0-1); EOSINOPHILS % (AUTO) 1 % (1-7); LYMPHOCYTES % (AUTO) 6 % (22-44); MEAN CORPUSCULAR HEMOGLOBIN 30.7 pg (27.5-34.5); MEAN CORPUSCULAR HGB CONC 32.8 g/dL (33.2-36.2); MEAN PLATELET VOLUME 8.4 fL (7.4-10.4); MONOCYTES % (AUTO) 7 % (2-9); NEUTROPHILS % (AUTO) 85 % (42-75); PLATELET COUNT 189 x10^3/uL (130-400); RED BLOOD COUNT 3.82 x10^6/uL (4.38-5.82); RED CELL DISTRIBUTION WIDTH 17.1 % (9.4-14.8)
[2021-04-24 05:37] LABS: INTERNATIONAL NORMALIZED RATIO 1.75 (0.93-1.1); PROTHROMBIN TIME 18.2 Seconds (9.6-11.5)
[2021-04-24] MEDS: CARVEDILOL 25 MG TABLET PO SCH ×2 (05:37→15:39)
[2021-04-24 05:39] LABS: ALBUMIN 3.4 g/dL (3.4-5.0); ANION GAP 10 mmol/L (5-15); CALCIUM 9.2 mg/dL (8.5-10.1); CHLORIDE 105 mmol/L (98-107)
[2021-04-24 05:43] LABS: ALANINE AMINOTRANSFERASE 31 U/L (12-78); ALKALINE PHOSPHATASE 75 U/L (45-117); CREATININE 8.33 mg/dL (0.7-1.3); TOTAL PROTEIN 8.3 g/dL (6.4-8.2)
[2021-04-24] MEDS ORDERED: ASPIRIN 81 MG TABLET EC PO SCH (06:00)
[2021-04-24 06:58] VITALS: BP 124/69
[2021-04-24] MEDS: ISOSORBIDE DINITRATE 10 MG TABLET PO SCH ×2 (08:16→15:39)
[2021-04-24] MEDS: GABAPENTIN 300 MG CAPSULE PO SCH ×3 (08:16→15:36)
[2021-04-24] MEDS: AMLODIPINE 5 MG TABLET PO SCH (08:16)
[2021-04-24] MEDS ORDERED: CLOPIDOGREL 75 MG TABLET PO SCH (09:30)
[2021-04-24] MEDS ORDERED: OMNIPAQUE 350 MG/ML, 75ML BOTTLE ONE (11:50)
[2021-04-24] MEDS ORDERED: OXYcodone IR 5MG TABLET PO PRN (12:00)
[2021-04-24 12:37] VITALS: BP 100/55
[2021-04-24] MEDS ORDERED: GABA300C PO (15:36)
[2021-04-24] MEDS ORDERED: CLOP75TA PO (15:36)
[2021-04-24] MEDS ORDERED: CARV25TA12 PO (15:36)
[2021-04-24] MEDS ORDERED: AMLO-150 PO (15:36)
[2021-04-24] MEDS ORDERED: ATOR-2 PO (15:40)
== END 2021-04-24 17:38 | disposition home or self-care (01) | DRG 190 ==
LOC: ED 07:12 → EDIP 07:22 → 4WST 09:16 → 5SO 04-23 14:46
PROVIDERS: ADMIT Family Medicine; ATTEND Family Medicine
PROC: 4A023N8 Measurement of Cardiac Sampling and Pressure, Bilateral, Percutaneous Approach (ICD-10-PCS; principal; 2021-04-23)
PROC: B2111ZZ Fluoroscopy of Multiple Coronary Arteries using Low Osmolar Contrast (ICD-10-PCS; 2021-04-23)
PROC: B2151ZZ Fluoroscopy of Left Heart using Low Osmolar Contrast (ICD-10-PCS; 2021-04-23)
PROC: B2131ZZ Fluoroscopy of Multiple Coronary Artery Bypass Grafts using Low Osmolar Contrast (ICD-10-PCS; 2021-04-23)
PROC: B2181ZZ Fluoroscopy of Left Internal Mammary Bypass Graft using Low Osmolar Contrast (ICD-10-PCS; 2021-04-23)
PROC: 5A1D70Z Performance of Urinary Filtration, Intermittent, Less than 6 Hours Per Day (ICD-10-PCS; 2021-04-24)
DX: I25.110 Atherosclerotic heart disease of native coronary artery with unstable angina pectoris (principal); I21.A1 Myocardial infarction type 2; I13.2 Hypertensive heart and chronic kidney disease with heart failure and with stage 5 chronic kidney disease, or end stage renal disease; J18.9 Pneumonia, unspecified organism; E11.22 Type 2 diabetes mellitus with diabetic chronic kidney disease; D68.59 Other primary thrombophilia; I27.29 Other secondary pulmonary hypertension; G62.9 Polyneuropathy, unspecified; N18.6 End stage renal disease; Z86.74 Personal history of sudden cardiac arrest; I48.0 Paroxysmal atrial fibrillation; I08.0 Rheumatic disorders of both mitral and aortic valves; E78.5 Hyperlipidemia, unspecified; Z20.822 Contact with and (suspected) exposure to COVID-19; R00.1 Bradycardia, unspecified; I50.40 Unspecified combined systolic (congestive) and diastolic (congestive) heart failure; I27.81 Cor pulmonale (chronic); I16.1 Hypertensive emergency; I25.5 Ischemic cardiomyopathy; Z79.01 Long term (current) use of anticoagulants; Z86.718 Personal history of other venous thrombosis and embolism; Z87.891 Personal history of nicotine dependence; Z95.0 Presence of cardiac pacemaker; Z95.1 Presence of aortocoronary bypass graft; Z95.5 Presence of coronary angioplasty implant and graft
CPT/HCPCS: 36415; 84145; 93461; 96372; 96374; 96375; 99285; J3490; 71045; 71275; 80053; 83605; 83690; 83735; 84484; 85025; 85520; 85610; 86705; 86706; 87040; 87340; 93005; 99156; 99157; C1760; C1769; C1894; G0378; J1170; J1644; J2250; J3010; J3486; Q9967; U0005; J0360; J2060; U0003